=== PATIENT | female | born 1950 | race African-American/Black ===

== ENCOUNTER 2016-11-06 13:51 | Inpatient (IN) | payer OTHER, MEDICARE ==
[~2016-11-06] VITALS: Ht 162.6 cm; Wt 56.0 kg
[2016-11-06] VITALS (10 sets, daily range): BP systolic 101–117; BP diastolic 57–72; PULSE 107–113; RESP 18–20; TEMP 98–98.4; O2SAT 100
[~2016-11-06 13:51] MED LIST: 1-ME1LIQ PO; CALC-197 PO; HYDR-2768 PO; LEVO.025 PO; LIPI20TA OR; LORTA5 PO; ROBA750T3 PO; ROPI.5 PO; VITA100T15 PO; VITA500L4 PO
[2016-11-06] MEDS ORDERED: SODIUM CHLOR 0.9% 1000 ML INJ 1,000 ML IV SCH (14:10)
[2016-11-06] MEDS ORDERED: SODIUM CHLORIDE 0.9% FLUSH 5 ML FLUSH IVF PRN (14:15)
[2016-11-06] MEDS ORDERED: PANTOPRAZOLE SODIUM 40 MG VIAL IVP ONE (14:15)
--- NOTE | 2016-11-06 14:18 | PD ---
HPI Chief Complaint: Abdominal Pain Time Seen by Provider: 14:10 Travel History International Travel<30 days: No Contact w/Intl Traveler<30days: No Traveled to known affect area: No History of Present Illness HPI 66-year-old female with history of hypertension, high cholesterol, hypothyroidism, presents to the ER today brought in by EMS because she has had 2 days history of dark stools, lightheadedness, feeling like she is going to pass out and epigastric abdominal pains. Pain is currently a 5 out of 10. She denies any nausea, vomiting, fevers, shortness of breath, or other symptoms. Patient's called EMS because he states that she had syncopal episodes 3 times. She denies any loss of consciousness. Modifying Factors: None Associated Signs & Symptoms: Epigastric abdominal pains, lightheadedness, dark stool, near-syncope Risk Factors: None PFSH Past Medical History Diminished Hearing: No Hypertension: Yes Immunizations Current: No (NO MONEY FOR PCP) Menopausal: Yes Tubal Ligation: Yes Social History Alcohol Use: Yes (2 BEERS/DAY) Tobacco Use: No Substance Use: No Allergies-Medications (Allergen,Severity, Reaction): Coded Allergies: Lisinopril (Verified Allergy, Intermediate, Swelling, 11/06/16) Reported Meds & Prescriptions Reported Meds & Active Scripts Active [place] 5/325 (Hydrocodone/Acetaminophen 5/325) 5 mg/325 mg Tab 1 Tab PO BID PRN Requip (Ropinirole HCl) 0.5 Mg Tab 0.5 Mg PO HS Levothyroxine 25 mcg (Levothyroxine Sodium) 25 Mcg Tab 25 Mcg PO DAILY Robaxin-750 (Methocarbamol) 750 Mg Tab 750 Mg PO BID Lipitor 20 Mg Tab (Atorvastatin Calcium) 20 Mg Tab 20 Mg OR HS Hctz (Hydrochlorothiazide) 25 Mg Tab 25 Mg PO DAILY Amlodipine Besylate 10 mg (Amlodipine Besylate) 10 Mg Tab 10 Mg PO DAILY Reported Calcium 600+D3 (Calcium Carbonate-Cholecalcife) +D3 Tab 1 PO DAILY Vitamin B12 (Cyanocobalamin) 100 Mcg Tab 0 Mcg PO DAILY UNKNOWN DOSE Vitamin C (Ascorbic Acid) 500 Mg/5 Ml Syrp 500 Mg PO UNCERTAIN EXACT DOSE Review of Systems Except as stated in HPI: all other systems reviewed are Neg Physical Exam Narrative GENERAL: Well-developed elderly -Portuguese female in moderate distress, lethargic, but oriented 3. SKIN: Warm and dry. HEAD: Atraumatic. Normocephalic. EYES: Pupils equal and round. No scleral icterus. No injection or drainage. ENT: No nasal bleeding or discharge. Mucous membranes pink and moist. NECK: Trachea midline. No JVD. CARDIOVASCULAR: Regular rate and rhythm. No murmur appreciated. RESPIRATORY: No accessory muscle use. Clear to auscultation. Breath sounds equal bilaterally. GASTROINTESTINAL: Abdomen soft, mild epigastric tenderness without guarding or rebound, nondistended. Hepatic and splenic margins not palpable. RECTAL EXAM: No masses or tenderness, stool is dark brown, Hemoccult positive. MUSCULOSKELETAL: No obvious deformities. No clubbing. No cyanosis. No edema. NEUROLOGICAL: Awake and alert. No obvious cranial nerve deficits. Motor grossly within normal limits. Normal speech. PSYCHIATRIC: Appropriate mood and affect; insight and judgment normal. Data Data Last Documented VS Vital Signs Date Time Temp Pulse Resp B/P Pulse Ox O2 Delivery O2 Flow Rate FiO2 11/06/16 15:50 113 20 109/57 100 Room Air Orders Complete Blood Count With Diff (11/06/16 14:10) Comprehensive Metabolic Panel (11/06/16 14:10) Prothrombin Time / Inr (Pt) (11/06/16 14:10) Act Partial Throm Time (Ptt) (11/06/16 14:10) Urinalysis - C+S If Indicated (11/06/16 14:10) Type And Screen (11/06/16 14:10) Ecg Monitoring (11/06/16 14:10) Iv Access Insert/Monitor (11/06/16 14:10) Ng Gastric Tube Insert/Monitor (11/06/16 14:10) Oximetry (11/06/16 14:10) Pantoprazole Inj (Protonix Inj) (11/06/16 14:15) Sodium Chlor 0.9% 1000 Ml Inj (Ns 1000 M (11/06/16 14:10) Sodium Chloride 0.9% Flush (Ns Flush) (11/06/16 14:15) Electrocardiogram (11/06/16 14:18) Ckmb (Isoenzyme) Profile (11/06/16 14:18) Troponin I (11/06/16 14:18) Red Blood Cells (Rbc) (11/06/16 15:03) Blood Product Administration .UPON TRANSFUSION (11/06/16 15:03) Sodium Chlor 0.9% 250 Ml Inj (Ns 250 Ml (11/06/16 15:15) Admit Order (Ed Use Only) (11/06/16 15:55) Admit To Inpatient (11/06/16 ) Vital Signs (Adult) Q4H (11/06/16 15:59) Activity Oob Ad Pilar (11/06/16 15:59) Intake + Output YOKO.QSHIFT (11/06/16 15:59) Diet Npo (11/06/16 Dinner) Sodium Chloride 0.9% Flush (Ns Flush) (11/06/16 16:00) Sodium Chloride 0.9% Flush (Ns Flush) (11/06/16 21:00) Sodium Chlor 0.9% 1000 Ml Inj (Ns 1000 M (11/06/16 16:30) Pantoprazole Inj (Protonix Inj) (11/06/16 21:00) Ondansetron Inj (Zofran Inj) (11/06/16 16:00) Hgb & Hct (11/06/16 15:59) Hgb & Hct (11/07/16 03:59) Hgb & Hct (11/07/16 15:59) Complete Blood Count With Diff (11/07/16 06:00) Comprehensive Metabolic Panel (11/07/16 06:00) Resp Oxygen Rufus C Titrat 1-4 L (11/06/16 ) Consult Gastroenterology (11/06/16 ) Inpatient Certification (11/06/16 ) Labs Laboratory Tests Test 11/06/16 11/06/16 14:30 14:40 White Blood Count 12.9 TH/MM3 Red Blood Count 1.78 MIL/MM3 Hemoglobin 5.8 GM/DL Hematocrit 18.7 % Mean Corpuscular Volume 105.1 FL Mean Corpuscular Hemoglobin 32.7 PG Mean Corpuscular Hemoglobin 31.1 % Concent Red Cell Distribution Width 14.9 % Platelet Count 213 TH/MM3 Mean Platelet Volume 8.1 FL Neutrophils (%) (Auto) 85.1 % Lymphocytes (%) (Auto) 10.0 % Monocytes (%) (Auto) 4.7 % Eosinophils (%) (Auto) 0.0 % Basophils (%) (Auto) 0.2 % Neutrophils # (Auto) 11.0 TH/MM3 Lymphocytes # (Auto) 1.3 TH/MM3 Monocytes # (Auto) 0.6 TH/MM3 Eosinophils # (Auto) 0.0 TH/MM3 Basophils # (Auto) 0.0 TH/MM3 CBC Comment AUTO DIFF Differential Comment AUTO DIFF CONFIRMED Platelet Estimate NORMAL Platelet Morphology Comment NORMAL Ovalocytes 1+ Stomatocytes 1+ Prothrombin Time 10.9 SEC Prothromb Time International 1.0 RATIO Ratio Activated Partial 18.6 SEC Thromboplast Time Sodium Level 141 MEQ/L Potassium Level 3.9 MEQ/L Chloride Level 106 MEQ/L Carbon Dioxide Level 19.7 MEQ/L Anion Gap 15 MEQ/L Blood Urea Nitrogen 57 MG/DL Creatinine 1.02 MG/DL Estimat Glomerular Filtration 66 ML/MIN Rate Random Glucose 165 MG/DL Calcium Level 7.8 MG/DL Total Bilirubin 0.3 MG/DL Aspartate Amino Transf 55 U/L (AST/SGOT) Alanine Aminotransferase 26 U/L (ALT/SGPT) Alkaline Phosphatase 87 U/L Total Creatine Kinase 70 U/L Troponin I LESS THAN 0.02 NG/ML Total Protein 5.7 GM/DL Albumin 2.7 GM/DL Blood Type A POSITIVE Antibody Screen NEGATIVE Crossmatch Leukocyte-Reduced Red Blood Cells Blood Bank Comment Urine Color YELLOW Urine Turbidity CLEAR Urine pH 6.0 Urine Specific [place] 1.015 Urine Protein TRACE mg/dL Urine Glucose (UA) NEG mg/dL Urine Ketones NEG mg/dL Urine Occult Blood NEG Urine Nitrite NEG Urine Bilirubin NEG Urine Urobilinogen LESS THAN 2.0 MG/DL Urine Leukocyte Esterase NEG Urine WBC LESS THAN 1 /hpf Urine Hyaline Casts 5 /lpf Urine Mucus FEW /lpf Microscopic Urinalysis Comment CULT NOT INDICATED MDM Medical Decision Making Medical Screen Exam Complete: Yes Emergency Medical Condition: Yes Medical Record Reviewed: Yes Interpretation(s) EKG shows sinus tachycardia at a rate of 100 bpm with a left bundle branch block pattern. Unchanged from previous EKG from 2011. Laboratory Tests Test 11/06/16 11/06/16 14:30 14:40 White Blood Count 12.9 TH/MM3 (4.0-11.0) Red Blood Count 1.78 MIL/MM3 (4.00-5.30) Hemoglobin 5.8 GM/DL (11.6-15.3) Hematocrit 18.7 % (35.0-46.0) Mean Corpuscular Volume 105.1 FL (80.0-100.0) Mean Corpuscular Hemoglobin 31.1 % Concent (32.0-36.0) Neutrophils (%) (Auto) 85.1 % (16.0-70.0) Neutrophils # (Auto) 11.0 TH/MM3 (1.8-7.7) Activated Partial 18.6 SEC Thromboplast Time (24.3-30.1) Carbon Dioxide Level 19.7 MEQ/L (21.0-32.0) Blood Urea Nitrogen 57 MG/DL (7-18) Creatinine 1.02 MG/DL (0.50-1.00) Estimat Glomerular Filtration 66 ML/MIN (>89) Rate Random Glucose 165 MG/DL (74-106) Calcium Level 7.8 MG/DL (8.5-10.1) Aspartate Amino Transf 55 U/L (15-37) (AST/SGOT) Troponin I LESS THAN 0.02 NG/ML (0.02-0.05) Total Protein 5.7 GM/DL (6.4-8.2) Albumin 2.7 GM/DL (3.4-5.0) Urine Mucus FEW /lpf (OCC) Differential Diagnosis GI bleed versus coagulopathy versus dehydration versus metabolic issues Narrative Course Patient is Hemoccult positive. Patient was given IV fluids due to orthostasis. She gets quite dizzy and disoriented when stood up. Her H&H is low and 2 units of blood has been ordered for her. IV Protonix was ordered. At this point, my plan would be to admit the patient for further treatment. Patient's GI doctor, Dr. Olvera has been consult on the case. Case was discussed with Dr. Saunders for admission. HemaPrompt Point of Care Internal Pos. & Neg. Controls: Passed Fecal Specimen Occult Blood: Positive Diagnosis Primary Impression: GI bleed Additional Impression: Near syncope Admitting Information Admitting Physician Requests: Admit Jovani Pickering MD Nov 06, 2016 14:18
[2016-11-06 14:56] LABS: BLOOD, URINE NEG (NEG); COMMENT (UR) CULT NOT INDICATED; CULTURE IF INDICATED CULT NOT INDICATED; GLUCOSE,URINE NEG (NEG); HYALINE CAST, URINE 5 /lpf (RARE); KETONE, URINE NEG (NEG); MUCUS URINE FEW /lpf (OCC); NITRITE,URINE NEG (NEG); URINE COLOR YELLOW (YELLW/STRAW)
[2016-11-06 14:57] LABS: BASOPHIL % 0.2 % (0.0-2.0); LYMPHOCYTE # 1.3 TH/MM3 (1.0-4.8); MEAN CELL VOLUME 105.1 FL (80.0-100.0); MEAN CORPUSCULAR HEMOGLOBIN 32.7 PG (27.0-34.0); MEAN CORPUSCULAR HGB CONC 31.1 % (32.0-36.0); MONO % 4.7 % (0.0-8.0); NEUT % 85.1 % (16.0-70.0); PLATELET COUNT 213 TH/MM3 (150-450); RED BLOOD COUNT 1.78 MIL/MM3 (4.00-5.30); RED CELL DISTRIBUTION WIDTH 14.9 % (11.6-17.2); WHITE BLOOD COUNT 12.9 TH/MM3 (4.0-11.0)
[2016-11-06 15:05] LABS: HEMATOCRIT 18.7 % (35.0-46.0); HEMO FLAGS AUTO DIFF
[2016-11-06 15:09] LABS: PROTHROMBIN TIME - PATIENT 10.9 SEC (9.8-11.6)
[2016-11-06 15:10] LABS: APTT (PATIENT) 18.6 SEC (24.3-30.1)
[2016-11-06] MEDS ORDERED: SODIUM CHLOR 0.9% 250 ML INJ 250 ML IV ONE (15:15)
[2016-11-06 15:17] LABS: ALT (GPT) 26 U/L (10-53); ANION GAP 15 MEQ/L (5-15); AST (GOT) 55 U/L (15-37); BICARBONATE 19.7 MEQ/L (21.0-32.0); BLOOD UREA NITROGEN 57 MG/DL (7-18); CHLORIDE 106 MEQ/L (98-107); GLOMERULAR FILTRATION RATE 66 ML/MIN (>89); POTASSIUM 3.9 MEQ/L (3.5-5.1); SODIUM (NA) 141 MEQ/L (136-145)
[2016-11-06 15:19] LABS: ALKALINE PHOSPHATASE 87 U/L (45-117); TOTAL BILIRUBIN ADULT 0.3 MG/DL (0.2-1.0)
[2016-11-06 15:28] LABS: CREATINE KINASE 70 U/L (26-192)
[2016-11-06 15:54] LABS: OVALOCYTES 1+ (NORMAL); PLATELET ESTIMATE SMEAR NORMAL (NORMAL); PLATELET MORPHOLOGY NORMAL (NORMAL); SCAN/DIFF AUTO DIFF CONFIRMED; STOMATOCYTES 1+ (NORMAL)
[2016-11-06] MEDS ORDERED: ONDANSETRON HCL 4 MG/2 ML VIAL IV PRN (16:00)
[2016-11-06] MEDS ORDERED: SODIUM CHLORIDE 0.9% FLUSH 5 ML FLUSH FLUSH PRN (16:00)
--- NOTE | 2016-11-06 16:45 | HHI.HP ---
HPI Service [facility] Primary Care Physician Yamileth Aranda MD Admission Diagnosis near-syncope/severe anemia/GI bleed Diagnoses: Chief Complaint: dizziness, abd pain, nausea Travel History International Travel<30 Days: No Contact w/Intl Traveler <30 Da: No Traveled to Known Affected Are: No History of Present Illness 66-year-old female with PMH of HTN, hypothyroidism, GERD, gastritis follows with Dr. Wade ROTHMAN as outpatient. She came to the emergency room with complaints of lightheadedness and she fell twice today at home. Did not hit any bodily parts. She also has associated abdominal pain, nausea, palpitations , abdominal pain, shortness of breath getting worse for the past 2 days. Denies vomiting. She also noticed over the past 5 days black stool. Denies taking NSAIDs, does not drink alcohol. Had EGD/colonoscopy [address] Olvera. Family history + stomach cancer her mother at the age of 7 and brother with lymphoma. Review of Systems Except as stated in HPI: all other systems reviewed are Neg 12 system ROS reviewed and negative except as stated in the HPI Past Family Social History Past Medical History HTN, hypothyroidism, GERD, gastritis Allergies: Coded Allergies: Lisinopril (Verified Allergy, Intermediate, Swelling, 11/06/16) Family History Mother Stomach ca at the age of 72 Brother lymphoma Social History Denies EtOH use, tobacco use or illicit drug use. Physical Exam Vital Signs Vital Signs Date Time Temp Pulse Resp B/P Pulse Ox O2 Delivery O2 Flow Rate FiO2 11/06/16 15:50 113 20 109/57 100 Room Air 11/06/16 14:08 11/06/16 14:02 90 20 102/61 96 20 101/63 Physical Exam GENERAL: This is a pleasant 66 yo AA female, pale, in some distress, with NGT, well-nourished, well-developed patient. SKIN: No rashes, ecchymoses or lesions. Cool and dry. HEAD: Atraumatic. Normocephalic. No temporal or scalp tenderness. EYES: Pupils equal round and reactive. Extraocular motions intact. No scleral icterus. No injection or drainage. ENT: Nose without bleeding, purulent drainage or septal hematoma. Throat without erythema, tonsillar hypertrophy or exudate. Uvula midline. Airway patent. NECK: Trachea midline. No JVD or lymphadenopathy. Supple, nontender, no meningeal signs. CARDIOVASCULAR: Regular rate and rhythm without murmurs, gallops, or rubs. RESPIRATORY: Clear to auscultation. Breath sounds equal bilaterally. No wheezes , rales, or rhonchi. GASTROINTESTINAL: NGT in place. Abdomen soft, non-tender, nondistended. No hepato-splenomegaly, or palpable masses. No guarding. MUSCULOSKELETAL: Extremities without clubbing, cyanosis, or edema. No joint tenderness, effusion, or edema noted. No calf tenderness. Negative Homans sign bilaterally. NEUROLOGICAL: Awake and alert. Cranial nerves II through XII intact. Motor and sensory grossly within normal limits. Five out of 5 muscle strength in all muscle groups. Normal speech. Laboratory Laboratory Tests Test 11/06/16 11/06/16 14:30 14:40 White Blood Count 12.9 Red Blood Count 1.78 Hemoglobin 5.8 Hematocrit 18.7 Mean Corpuscular Volume 105.1 Mean Corpuscular Hemoglobin 32.7 Mean Corpuscular Hemoglobin 31.1 Concent Red Cell Distribution Width 14.9 Platelet Count 213 Mean Platelet Volume 8.1 Neutrophils (%) (Auto) 85.1 Lymphocytes (%) (Auto) 10.0 Monocytes (%) (Auto) 4.7 Eosinophils (%) (Auto) 0.0 Basophils (%) (Auto) 0.2 Neutrophils # (Auto) 11.0 Lymphocytes # (Auto) 1.3 Monocytes # (Auto) 0.6 Eosinophils # (Auto) 0.0 Basophils # (Auto) 0.0 CBC Comment AUTO DIFF Differential Comment AUTO DIFF CONFIRMED Platelet Estimate NORMAL Platelet Morphology Comment NORMAL Ovalocytes 1+ Stomatocytes 1+ Prothrombin Time 10.9 Prothromb Time International 1.0 Ratio Activated Partial 18.6 Thromboplast Time Sodium Level 141 Potassium Level 3.9 Chloride Level 106 Carbon Dioxide Level 19.7 Anion Gap 15 Blood Urea Nitrogen 57 Creatinine 1.02 Estimat Glomerular Filtration 66 Rate Random Glucose 165 Calcium Level 7.8 Total Bilirubin 0.3 Aspartate Amino Transf 55 (AST/SGOT) Alanine Aminotransferase 26 (ALT/SGPT) Alkaline Phosphatase 87 Total Creatine Kinase 70 Troponin I LESS THAN 0.02 Total Protein 5.7 Albumin 2.7 Blood Type A POSITIVE Antibody Screen NEGATIVE Crossmatch Leukocyte-Reduced Red Blood Cells Blood Bank Comment Urine Color YELLOW Urine Turbidity CLEAR Urine pH 6.0 Urine Specific [place] 1.015 Urine Protein TRACE Urine Glucose (UA) NEG Urine Ketones NEG Urine Occult Blood NEG Urine Nitrite NEG Urine Bilirubin NEG Urine Urobilinogen LESS THAN 2.0 Urine Leukocyte Esterase NEG Urine WBC LESS THAN 1 Urine Hyaline Casts 5 Urine Mucus FEW Microscopic Urinalysis Comment CULT NOT INDICATED Result Diagram: 11/06/16 1430 11/06/16 1430 Assessment and Plan Assessment and Plan 66 yo F with Anemia likely due to GI bleed. Melanotic stool. Abdominal pain/ nausea. Keep NPO. NGT on low intermittent suction. Start IVF . Monitor VS closely. H/o GERD/gastritis, had EGD/colonoscopy [address] Olvera Hemoglobin is 5.8 on admission Transfuse 3 units of blood Monitor H&H. Transfuse if hgb< 7 or if symptomatic anemia and hgb < 9 Start protonix 40 mg IV BID. Consider octreotide. Consult Dr. Olvera GI HTN: Hold BP meds. Monitor BP Hypothyroidism: Restart home meds. DVT ppx : SCD/TEDs, chemical ppx CI 2/2 GIB Discussed Condition With patient, nurse, ED physician, family at bedside Physician Certification 2 Midnight Certification Type: Admission for Inpatient Services Order for Inpatient Services The services are ordered in accordance with Medicare regulations or non- Medicare payer requirements, as applicable. In the case of services not specified as inpatient-only, they are appropriately provided as inpatient services in accordance with the 2-midnight benchmark. Estimated LOS (days): 3 days is the estimated time the patient will need to remain in the hospital, assuming treatment plan goals are met and no additional complications. Post-Hospital Plan: Not yet determined Adela Saunders MD Nov 06, 2016 16:45
[2016-11-06 17:01] LABS: HEMATOCRIT 18.3 % (35.0-46.0); REVIEW FLAG FINAL
[2016-11-06] MEDS ORDERED: HYDR-3583 PO (17:35)
[2016-11-06] MEDS ORDERED: LEVO25TA4 PO (17:35)
[2016-11-06] MEDS ORDERED: HYDR25TA5 PO (17:35)
[2016-11-06] MEDS ORDERED: AMLO10TA2 PO (17:35)
--- NOTE | 2016-11-06 20:27 | MB ---
cc: AUGUSTINA WHITAKER DATE OF CONSULTATION 11/06/16 1950 REASON FOR CONSULTATION Evaluation of anemia, GI bleed, syncope HISTORY OF PRESENT ILLNESS A 66-year-old female known to me from prior evaluation. She had EGD, colonoscopy in 2015. Upper endoscopy revealed reflux and gastritis. Colonoscopy revealed one colon polyp that was removed. The patient has not been seen since that time. She presents to the emergency room with lightheadedness and syncopal episodes. She was found to have a hemoglobin of 5.8. She has been having epigastric pain with nausea. She has been getting short of breath. This has been going on for about a week, worse over the last 2-3 days. She denies hematemesis. Also over the past several days she has noted black tarry stools. She admits to taking two Aleve in the evening. She has been doing this for about 3-4 weeks because she was unable to sleep and she felt this would help her sleep. She also admits to drinking at least three beers per day. She used to drink even heavier than that a year ago, 4+ beers per day. Her mother had gastric cancer. The patient also recently was found to have an abnormal imaging study, ultrasound of the liver and a CT scan has confirmed a 6 x 4 cm lesion in the liver in the left lobe. There were two smaller lesions. This raises a suspicion for a possible malignancy. She states that she has been losing weight over the last several weeks as well. Appetite has been poor. She states she has not had beer in the last couple of weeks. She is currently being transfused. I was asked to evaluate her further. PAST MEDICAL HISTORY 1. Hypertension, 2. Gastroesophageal reflux disease, 3. Gastritis, 4. Hypothyroidism. ALLERGIES LISINOPRIL FAMILY HISTORY As mentioned above. SOCIAL HISTORY She does consume alcohol. Mo other illicit drug use. REVIEW OF SYSTEMS 12-point review of systems was stated above. She has had no fever, chills or jaundice. MEDICATIONS 1. Amlodipine 2. Levothyroxine. 3. Hydrocodone for back pain. PHYSICAL EXAMINATION GENERAL: A thin, well-developed female alert in no acute distress. NG tube was placed. It was relatively clear. HEENT: She is nonicteric. Oral mucosa dry. NECK: Supple. CARDIAC: S1-S2 regular rhythm CHEST: Clear. ABDOMEN: Slight epigastric tenderness is noted. No masses. No hepatomegaly is noted. Bowel sounds are present. EXTREMITIES: Without clubbing, cyanosis or edema. LABORATORY DATA Other lab tests - liver enzymes were essentially stable. SGOT was 55. Bilirubin was normal. PT/INR normal. Platelet count was normal. MCV was noted high at 105 and white count was 12.9. IMPRESSION 1. Severe anemia. (the patient may have a component megaloblastic anemia as well) 2. Melena GI bleed. The patient does consume alcohol as mentioned above and she has been taking NSAIDs. Certainly an upper GI bleed such as duodenal ulcer, gastric ulcer may be responsible. I cannot rule out an occult lesion as well. 3. Epigastric pain secondary to above. 4. Recent diagnosis of hepatic mass. This is a concern for possible hepatoma due to chronic liver disease. The liver biopsy has been scheduled. PLAN We will proceed with EGD to rule out upper GI bleeding source in the morning. Procedure, risks and benefits have been discussed including bleeding, sepsis, perforation, etc. Would continue IV Protonix. The patient is currently is being transfused. Follow up the H&H post transfusion. Would be appropriate to transfuse to a hemoglobin of 8-9 range. I have ordered labs as well. We will follow the patient with you. Thank you kindly for this consult. I have discussed this with her as well. MD JAMIE Pitts/ /6:26 PM /8:05 PM
[2016-11-06] MEDS ORDERED: MORPHINE SULFATE 4 MG/ML INJ IV PUSH ONE (21:00)
[2016-11-06] MEDS: SODIUM CHLORIDE 0.9% FLUSH 5 ML FLUSH FLUSH SCH (21:00)
[2016-11-06] MEDS: PANTOPRAZOLE SODIUM 40 MG VIAL IV SCH (21:45)
[2016-11-07] VITALS (26 sets, daily range): BP systolic 107–132; BP diastolic 67–95; PULSE 82–112; RESP 16–20; TEMP 98.1–98.8; O2SAT 92–100
[2016-11-07] MEDS: SODIUM CHLOR 0.9% 1000 ML INJ 1,000 ML IV SCH ×3 (02:30→22:30)
[2016-11-07 05:45] LABS: AUTOMATED NEUTROPHIL # 9.2 TH/MM3 (1.8-7.7); BASOPHIL # 0.1 TH/MM3 (0-0.2); BASOPHIL % 0.5 % (0.0-2.0); EOSINOPHIL % 0.2 % (0.0-4.0); HEMO FLAGS DIFF FINAL; LYMPH % 15.1 % (9.0-44.0); LYMPHOCYTE # 1.9 TH/MM3 (1.0-4.8); MEAN CELL VOLUME 88.2 FL (80.0-100.0); MEAN CORPUSCULAR HEMOGLOBIN 29.6 PG (27.0-34.0); MEAN CORPUSCULAR HGB CONC 33.6 % (32.0-36.0); MONO % 9.3 % (0.0-8.0); NEUT % 74.9 % (16.0-70.0); PLATELET COUNT 187 TH/MM3 (150-450); RED BLOOD COUNT 3.07 MIL/MM3 (4.00-5.30); RED CELL DISTRIBUTION WIDTH 21.2 % (11.6-17.2); WHITE BLOOD COUNT 12.2 TH/MM3 (4.0-11.0)
[2016-11-07 06:17] LABS: ALKALINE PHOSPHATASE 89 U/L (45-117); ALT (GPT) 23 U/L (10-53); ANION GAP 10 MEQ/L (5-15); AST (GOT) 51 U/L (15-37); BICARBONATE 25.2 MEQ/L (21.0-32.0); BLOOD UREA NITROGEN 33 MG/DL (7-18); CHLORIDE 107 MEQ/L (98-107); GLOMERULAR FILTRATION RATE 92 ML/MIN (>89); POTASSIUM 3.7 MEQ/L (3.5-5.1); SODIUM (NA) 142 MEQ/L (136-145); TOTAL BILIRUBIN ADULT 1.1 MG/DL (0.2-1.0)
--- NOTE | 2016-11-07 07:24 | HHI.PR ---
Subjective Remarks Still with pain. No more nausea and no vomiting. NGT in place. No fever or chills. No cough. Did not have a BM. No over bleeding. Tachycardic, appears in distress due to pain and tachycardia. NPO plan for EGD today Objective Vitals Vital Signs Date Time Temp Pulse Resp B/P Pulse Ox O2 Delivery O2 Flow Rate FiO2 11/07/16 07:00 98.5 99 20 123/79 100 11/07/16 07:00 99 11/07/16 04:00 98.5 103 18 107/67 100 11/07/16 03:00 109 11/06/16 23:00 98.1 107 18 109/64 100 11/06/16 23:00 111 11/06/16 19:00 112 11/06/16 19:00 98.0 113 20 104/72 100 11/06/16 17:38 98.4 111 18 105/63 100 Room Air 11/06/16 17:35 100 21 11/06/16 17:12 98.4 109 19 117/63 100 Room Air 11/06/16 15:50 113 20 109/57 100 Room Air 11/06/16 14:08 11/06/16 14:02 90 20 102/61 96 20 101/63 I/O 11/06/16 11/06/16 11/06/16 11/07/16 11/07/16 11/07/16 07:00 15:00 23:00 07:00 15:00 23:00 Intake Total 250 ml Output Total 700 ml Balance -450 ml Intake Packed Cells 250 ml Output Urine Total 700 ml Result Diagram: 11/07/1650911/07/1610 Objective Remarks GENERAL: This is a pleasant 66 yo AA female, pale, in some distress, with NGT, well-nourished, well-developed patient. SKIN: No rashes, ecchymoses or lesions. Cool and dry. HEAD: Atraumatic. Normocephalic. No temporal or scalp tenderness. EYES: Pupils equal round and reactive. Extraocular motions intact. No scleral icterus. No injection or drainage. ENT: Nose without bleeding, purulent drainage or septal hematoma. Throat without erythema, tonsillar hypertrophy or exudate. Uvula midline. Airway patent. NECK: Trachea midline. No JVD or lymphadenopathy. Supple, nontender, no meningeal signs. CARDIOVASCULAR: Regular rate and rhythm without murmurs, gallops, or rubs. RESPIRATORY: Clear to auscultation. Breath sounds equal bilaterally. No wheezes , rales, or rhonchi. GASTROINTESTINAL: NGT in place. Abdomen soft, non-tender, nondistended. No hepato-splenomegaly, or palpable masses. No guarding. MUSCULOSKELETAL: Extremities without clubbing, cyanosis, or edema. No joint tenderness, effusion, or edema noted. No calf tenderness. Negative Homans sign bilaterally. NEUROLOGICAL: Awake and alert. Cranial nerves II through XII intact. Motor and sensory grossly within normal limits. Five out of 5 muscle strength in all muscle groups. Normal speech. A/P Assessment and Plan 66 yo F with Anemia likely due to GI bleed. Melanotic stool. Abdominal pain/ nausea. Keep NPO. NGT on low intermittent suction. On IVF . Monitor VS closely. H/o GERD/gastritis, had EGD/colonoscopy [address] Olvera Hemoglobin is 5.8 on admission S/P transfusion 2 units of blood repeat HGB 9.1 Monitor H&H. Transfuse if hgb< 7 or if symptomatic anemia and hgb < 9 Continue protonix 40 mg IV BID. Consider octreotide. Consult Dr. Olvera GI, plan for EGD 11/07/16. Pain meds per pain scale. HTN: Hold BP meds if low BP. Monitor BP Hypothyroidism: Restart home meds. DVT ppx : SCD/TEDs, chemical ppx CI 2/2 GIB Discussed Condition With patient, nurse Adela Saunders MD Nov 07, 2016 07:24
[2016-11-07] MEDS: SODIUM CHLORIDE 0.9% FLUSH 5 ML FLUSH FLUSH SCH ×2 (09:14→22:38)
[2016-11-07] MEDS: HYDROmorphone HCL PF 1 MG/ML VIAL IV PUSH PRN ×4 (09:14→23:25)
[2016-11-07] MEDS: PANTOPRAZOLE SODIUM 40 MG VIAL IV SCH ×2 (09:14→22:37)
[2016-11-07] MEDS ORDERED: PROPOFOL 200 MG/20 ML AMP IV ONE (11:13)
[2016-11-07] MEDS: SUCRALFATE 1 GM/10 ML CUP PO SCH ×3 (14:04→22:35)
[2016-11-07] MEDS ORDERED: SUCR1S PO (14:11)
[2016-11-07] MEDS ORDERED: PANT40TA3 PO (14:12)
--- NOTE | 2016-11-07 14:12 | HHI.DCPOC ---
Discharge Care Plan Goals to Promote Your Health * To prevent worsening of your condition and complications * To maintain your health at the optimal level Directions to Meet Your Goals Take your medications as prescribed Follow your dietary instruction Follow activity as directed Keep your appointments as scheduled Take your immunizations and boosters as scheduled If your symptoms worsen call your PCP, if no PCP go to Urgent Care Center or Emergency Room Smoking is Dangerous to Your Health. Avoid second hand smoke Call the 24-hour hour crisis hotline for domestic abuse at Adela Saunders MD Nov 07, 2016 14:12
[2016-11-07] MEDS ORDERED: FERR325T PO (14:14)
--- NOTE | 2016-11-07 15:22 | EKG ---
Date Performed: 11/06/2016 Time Performed: 14:30:21 PTAGE: 66 years EKG: SINUS TACHYCARDIA LEFT BUNDLE BRANCH BLOCK ABNORMAL ECG PREVIOUS TRACING : 12/28/2011 10.48 Compared to previous tracing, the patient is now tachycardi c. DOCTOR: Maki Tyson Interpretating Date/Time 11/07/2016 15:21:26
[2016-11-07 17:47] LABS: HEMATOCRIT 24.8 % (35.0-46.0); REVIEW FLAG FINAL
[2016-11-07] MEDS: ACETAMINOPHEN/HYDROcodone 325 MG/5 MG TAB PO PRN ×2 (18:03→22:36)
--- NOTE | 2016-11-07 19:09 | PQ ---
Physician Query Response Document PATIENT: STACY HOGUE : 1950 ADMIT DATE: 11/06/2016 3:56 PM DISCH DATE: RESPONDING PROVIDER #: [email or web address] QUERY TEXT: Anemia Type Anemia is documented in the Medical Record. Please specify the cause (includes suspected or probable cause) Such as: -- Due to ACUTE blood loss -- Due to CHRONIC blood loss -- Due to iron deficiency -- Due to chronic disease -- Other, please specify PLEASE CONTACT [facility] IN [facility] [id number] FOR ASSISTANCE- THANK YOU The patient's Clinical Indicators include: PER H Assessment and Plan Anemia likely due to GI bleed. Melanotic stool. Hemoglobin is 5.8 on admission Transfuse 3 units of blood Query created by: Emy Singh on 11/07/2016 10:03 AM RESPONSE TEXT: Anemia due to acute blood loss from GI patient has melena Electronically signed by: Adela Saunders MD 11/07/2016 7:06 PM
[2016-11-08] VITALS (27 sets, daily range): BP systolic 102–139; BP diastolic 60–81; PULSE 72–90; RESP 16–18; TEMP 98.1–98.9; O2SAT 98–100
[2016-11-08] MEDS: ACETAMINOPHEN/HYDROcodone 325 MG/5 MG TAB PO PRN ×3 (03:48→17:15)
[2016-11-08 06:28] LABS: AUTOMATED NEUTROPHIL # 4.9 TH/MM3 (1.8-7.7); BASOPHIL % 0.5 % (0.0-2.0); EOSINOPHIL # 0.1 TH/MM3 (0-0.4); EOSINOPHIL % 1.3 % (0.0-4.0); LYMPH % 25.4 % (9.0-44.0); MEAN CELL VOLUME 90.2 FL (80.0-100.0); MEAN CORPUSCULAR HEMOGLOBIN 30.4 PG (27.0-34.0); MEAN CORPUSCULAR HGB CONC 33.7 % (32.0-36.0); MONO % 12.6 % (0.0-8.0); NEUT % 60.2 % (16.0-70.0); PLATELET COUNT 198 TH/MM3 (150-450); RED BLOOD COUNT 2.55 MIL/MM3 (4.00-5.30); RED CELL DISTRIBUTION WIDTH 21.3 % (11.6-17.2); WHITE BLOOD COUNT 8.1 TH/MM3 (4.0-11.0)
[2016-11-08 06:45] LABS: HEMO FLAGS AUTO DIFF
[2016-11-08 06:55] LABS: BICARBONATE 26.8 MEQ/L (21.0-32.0); POTASSIUM 3.8 MEQ/L (3.5-5.1)
[2016-11-08 07:54] LABS: PLATELET ESTIMATE SMEAR NORMAL (NORMAL); PLATELET MORPHOLOGY NORMAL (NORMAL); SCAN/DIFF AUTO DIFF CONFIRMED
--- NOTE | 2016-11-08 08:25 | HHI.DS ---
Discharge Summary Admission Date Nov 06, 2016 at 15:56 Discharge Date: Nov 08, 2016 Admitting Diagnosis near-syncope/severe anemia/GI bleed (1) Gastric ulcer due to nonsteroidal anti-inflammatory drug (NSAID) ICD Code: T39.391A Diagnosis: Principal (2) gastric ulcers Diagnosis: Principal (3) GI bleed ICD Code: K92.2 Diagnosis: Principal (4) Chronic back pain ICD Code: G89.29 Diagnosis: Secondary (5) Near syncope ICD Code: R55 Diagnosis: Secondary Procedures EGD 11/07/[address] Olvera GI specialist Brief History - From Admission 66-year-old female with PMH of HTN, hypothyroidism, GERD, gastritis follows with Dr. Wade ROTHMAN as outpatient. She came to the emergency room with complaints of lightheadedness and she fell twice today at home. Did not hit any bodily parts. She also has associated abdominal pain, nausea, palpitations , abdominal pain, shortness of breath getting worse for the past 2 days. Denies vomiting. She also noticed over the past 5 days black stool. Denies taking NSAIDs, does not drink alcohol. Had EGD/colonoscopy [address] Olvera. Family history + stomach cancer her mother at the age of 7 and brother with lymphoma. CBC/BMP: 11/08/16 0550 11/08/16 0550 Significant Findings Laboratory Tests Test 11/06/16 11/06/16 11/06/16 11/07/16 14:30 14:40 16:29 05:10 White Blood Count 12.9 TH/MM3 12.2 TH/MM3 (4.0-11.0) (4.0-11.0) Red Blood Count 1.78 MIL/MM3 3.07 MIL/MM3 (4.00-5.30) (4.00-5.30) Hemoglobin 5.8 GM/DL 5.5 GM/DL 9.1 GM/DL (11.6-15.3) (11.6-15.3) (11.6-15.3) Hematocrit 18.7 % 18.3 % 27.0 % (35.0-46.0) (35.0-46.0) (35.0-46.0) Mean Corpuscular Volume 105.1 FL (80.0-100.0) Mean Corpuscular Hemoglobin 31.1 % Concent (32.0-36.0) Neutrophils (%) (Auto) 85.1 % 74.9 % (16.0-70.0) (16.0-70.0) Neutrophils # (Auto) 11.0 TH/MM3 9.2 TH/MM3 (1.8-7.7) (1.8-7.7) Ovalocytes 1+ (NORMAL) Stomatocytes 1+ (NORMAL) Activated Partial 18.6 SEC Thromboplast Time (24.3-30.1) Carbon Dioxide Level 19.7 MEQ/L (21.0-32.0) Blood Urea Nitrogen 57 MG/DL (7-18) 33 MG/DL (7-18) Creatinine 1.02 MG/DL (0.50-1.00) Estimat Glomerular Filtration 66 ML/MIN (>89) Rate Random Glucose 165 MG/DL (74-106) Calcium Level 7.8 MG/DL 8.0 MG/DL (8.5-10.1) (8.5-10.1) Aspartate Amino Transf 55 U/L (15-37) 51 U/L (15-37) (AST/SGOT) Troponin I LESS THAN 0.02 NG/ML (0.02-0.05) Total Protein 5.7 GM/DL 5.8 GM/DL (6.4-8.2) (6.4-8.2) Albumin 2.7 GM/DL 2.8 GM/DL (3.4-5.0) (3.4-5.0) Urine Mucus FEW /lpf (OCC) Red Cell Distribution Width 21.2 % (11.6-17.2) Monocytes (%) (Auto) 9.3 % (0.0-8.0) Monocytes # (Auto) 1.1 TH/MM3 (0-0.9) Total Bilirubin 1.1 MG/DL (0.2-1.0) Test 11/07/16 11/08/16 16:10 05:50 Hemoglobin 8.5 GM/DL 7.7 GM/DL (11.6-15.3) (11.6-15.3) Hematocrit 24.8 % 23.0 % (35.0-46.0) (35.0-46.0) Red Blood Count 2.55 MIL/MM3 (4.00-5.30) Red Cell Distribution Width 21.3 % (11.6-17.2) Monocytes (%) (Auto) 12.6 % (0.0-8.0) Monocytes # (Auto) 1.0 TH/MM3 (0-0.9) Calcium Level 8.4 MG/DL (8.5-10.1) PE at Discharge GENERAL: This is a pleasant 66 yo AA female, pale, in some distress, with NGT, well-nourished, well-developed patient. SKIN: No rashes, ecchymoses or lesions. Cool and dry. HEAD: Atraumatic. Normocephalic. No temporal or scalp tenderness. EYES: Pupils equal round and reactive. Extraocular motions intact. No scleral icterus. No injection or drainage. ENT: Nose without bleeding, purulent drainage or septal hematoma. Throat without erythema, tonsillar hypertrophy or exudate. Uvula midline. Airway patent. NECK: Trachea midline. No JVD or lymphadenopathy. Supple, nontender, no meningeal signs. CARDIOVASCULAR: Regular rate and rhythm without murmurs, gallops, or rubs. RESPIRATORY: Clear to auscultation. Breath sounds equal bilaterally. No wheezes , rales, or rhonchi. GASTROINTESTINAL: NGT in place. Abdomen soft, non-tender, nondistended. No hepato-splenomegaly, or palpable masses. No guarding. MUSCULOSKELETAL: Extremities without clubbing, cyanosis, or edema. No joint tenderness, effusion, or edema noted. No calf tenderness. Negative Homans sign bilaterally. NEUROLOGICAL: Awake and alert. Cranial nerves II through XII intact. Motor and sensory grossly within normal limits. Five out of 5 muscle strength in all muscle groups. Normal speech. Hospital Course 66 yo F with Anemia likely due to acute GI bleed form Gastric ulcers ( PUD). Patient with melanotic stool. Abdominal pain/ nausea. Keep NPO. NGT on low intermittent suction. On IVF . Monitor VS closely. H/o GERD/gastritis, had EGD/colonoscopy [address] Olvera Hemoglobin is 5.8 on admission S/P transfusion 2 units of blood repeat HGB 9.1. HGB trending down will give venofer IV today Monitor H&H. Transfuse if hgb< 7 or if symptomatic anemia and hgb < 9 Continue protonix 40 mg IV BID. Consult Dr. Wade ROTHMAN, s/p EGD 11/07/16 shows Gastric body ulcers, biopsies obtained . Continue protonix, add carafate. Pain meds per pain scale. HGB 7. 7 transfuse 1 U PRBC , repeat H/H HTN: Hold BP meds if low BP. Monitor BP Hypothyroidism: Restart home meds. DVT ppx : SCD/TEDs, chemical ppx CI 2/2 GIB Discussed Condition With patient, nurse Feels improved, and feels comfortable to go home. Will give venofer IV as patient says she did not take Iron pills lately because could not tolerate them lately. Transfuse 1 U PRBC before DC/ Repeat HGB stable. Patient improved, discharged home in stable condition to follow up as OP with Dr Wade ROTHMAN. Pt Condition on Discharge: Stable Discharge Disposition: Discharge Home Discharge Time: > 30 minutes Discharge Instructions DIET: Follow Instructions for: Heart Healthy Diet Activities you can perform: Regular-No Restrictions Follow up Referrals: Gastroenterology - 2 Weeks PCP Follow-up - 3-5 Days New Medications: Ferrous Sulfate (Ferrous Sulfate) 325 Mg Tab 325 MG PO DAILY Nutritional Supplement #30 Ref 0 TAB Pantoprazole (Pantoprazole) 40 Mg Tab 40 MG PO DAILY Reflux #30 Ref 0 TAB Sucralfate Liq (Sucralfate Liq) 1 Gm/10 Ml Carmela 1 GM PO QID gi protection #30 PKT Continued Medications: Amlodipine (Amlodipine) 10 Mg Tab 10 MG PO DAILY Blood Pressure Management #30 Ref 0 TAB Hydrochlorothiazide (Hydrochlorothiazide) 25 Mg Tab 25 MG PO DAILY #30 Ref 0 TAB Hydrocodone-Acetaminophen (Hydrocodone-Acetaminophen) 10-325 mg Tab 1 TAB PO Q6H PRN PAIN Ref 0 TAB Levothyroxine (Levothyroxine) 25 Mcg Tab 25 MCG PO DAILY Thyroid #30 Ref 0 TAB Adela Saunders MD Nov 08, 2016 08:25
[2016-11-08] MEDS: SUCRALFATE 1 GM/10 ML CUP PO SCH ×4 (08:28→20:24)
[2016-11-08] MEDS: PANTOPRAZOLE SODIUM 40 MG VIAL IV SCH ×2 (08:28→20:24)
[2016-11-08] MEDS: HYDROmorphone HCL PF 1 MG/ML VIAL IV PUSH PRN ×3 (08:29→20:25)
[2016-11-08] MEDS ORDERED: IRON SUCROSE 100 MG/5 ML VIAL IV PUSH ONE (08:30)
--- NOTE | 2016-11-08 08:33 | HHI.PR ---
Subjective Remarks H/H is trending down. Had a black BM last night. No n/v/d/c. No abdominal pain. no chest pain, lightheadedness, sob. Tolerates full liquid diet. Says she feels improved and feels comfortable to go home. Objective Vitals Vital Signs Date Time Temp Pulse Resp B/P Pulse Ox O2 Delivery O2 Flow Rate FiO2 11/08/16 07:30 98.1 81 18 120/72 100 11/08/16 06:01 72 11/08/16 05:00 73 11/08/16 04:18 98.6 81 16 125/72 100 11/08/16 04:00 81 11/08/16 03:00 80 11/08/16 02:00 80 11/08/16 01:00 88 11/08/16 00:17 98.8 81 16 139/81 100 11/08/16 00:00 88 11/07/16 23:00 89 11/07/16 22:00 98 11/07/16 21:00 82 11/07/16 20:44 98.8 95 16 129/78 100 11/07/16 20:00 92 11/07/16 19:17 96 21 11/07/16 19:00 96 11/07/16 18:00 99 11/07/16 17:00 100 11/07/16 16:00 88 11/07/16 15:00 98 11/07/16 15:00 98.1 94 20 121/71 99 11/07/16 14:00 100 11/07/16 13:00 105 11/07/16 12:30 84 11/07/16 12:30 98.8 87 20 132/95 100 11/07/16 11:40 89 16 124/81 100 11/07/16 11:35 91 16 122/83 100 11/07/16 11:30 97.6 92 16 125/82 100 11/07/16 10:32 92 21 11/07/16 10:10 98.5 99 20 123/79 100 11/07/16 09:00 96 I/O 11/07/16 11/07/16 11/07/16 11/08/16 11/08/16 11/08/16 07:00 15:00 23:00 07:00 15:00 23:00 Intake Total 250 ml 50 ml 480 ml 240 ml Output Total 700 ml Balance -450 ml 50 ml 480 ml 240 ml Intake Oral 480 ml 240 ml IV Total 50 ml Packed Cells 250 ml Output Urine Total 700 ml # Voids 3 2 Result Diagram: 11/08/16 0550 11/08/16 0550 Objective Remarks GENERAL: This is a pleasant 66 yo AA female, pale, in some distress, with NGT, well-nourished, well-developed patient. SKIN: No rashes, ecchymoses or lesions. Cool and dry. HEAD: Atraumatic. Normocephalic. No temporal or scalp tenderness. EYES: Pupils equal round and reactive. Extraocular motions intact. No scleral icterus. No injection or drainage. ENT: Nose without bleeding, purulent drainage or septal hematoma. Throat without erythema, tonsillar hypertrophy or exudate. Uvula midline. Airway patent. NECK: Trachea midline. No JVD or lymphadenopathy. Supple, nontender, no meningeal signs. CARDIOVASCULAR: Regular rate and rhythm without murmurs, gallops, or rubs. RESPIRATORY: Clear to auscultation. Breath sounds equal bilaterally. No wheezes , rales, or rhonchi. GASTROINTESTINAL: NGT in place. Abdomen soft, non-tender, nondistended. No hepato-splenomegaly, or palpable masses. No guarding. MUSCULOSKELETAL: Extremities without clubbing, cyanosis, or edema. No joint tenderness, effusion, or edema noted. No calf tenderness. Negative Homans sign bilaterally. NEUROLOGICAL: Awake and alert. Cranial nerves II through XII intact. Motor and sensory grossly within normal limits. Five out of 5 muscle strength in all muscle groups. Normal speech. A/P Assessment and Plan 66 yo F with Anemia likely due to acute GI bleed form Gastric ulcers ( PUD). Patient with melanotic stool. Abdominal pain/ nausea. Keep NPO. NGT on low intermittent suction. On IVF . Monitor VS closely. H/o GERD/gastritis, had EGD/colonoscopy [address] Olvera Hemoglobin is 5.8 on admission S/P transfusion 2 units of blood repeat HGB 9.1. HGB trending down will give venofer IV today Monitor H&H. Transfuse if hgb< 7 or if symptomatic anemia and hgb < 9 Continue protonix 40 mg IV BID. Consider octreotide. Consult Dr. Wade GI, s/p EGD 11/07/16 shows Gastric body ulcers. Continue protonix, add carafate. Pain meds per pain scale. HTN: Hold BP meds if low BP. Monitor BP Hypothyroidism: Restart home meds. DVT ppx : SCD/TEDs, chemical ppx CI 2/2 GIB Discussed Condition With patient, nurse Feels improved, and feels comfortable to go home. Will give venofer IV as patient says she did not take Iron pills lately because could not tolerate them lately. POss DC later today if cleared by GI Dr Wade Saunders,Adela WOLFF Nov 08, 2016 08:33
[2016-11-08] MEDS: SODIUM CHLORIDE 0.9% FLUSH 5 ML FLUSH FLUSH SCH ×2 (09:00→20:24)
--- NOTE | 2016-11-08 12:19 | HHI.GIFU ---
Subjective Remarks alert Nad dark stools today HB 7.7 feeling much better Objective Vitals I&O Vital Signs Date Time Temp Pulse Resp B/P Pulse Ox O2 Delivery O2 Flow Rate FiO2 11/08/16 10:10 18 11/08/16 10:00 86 11/08/16 09:00 84 11/08/16 08:00 84 11/08/16 07:30 98.1 81 18 120/72 100 11/08/16 07:00 78 11/08/16 06:01 72 11/08/16 05:00 73 11/08/16 04:18 98.6 81 16 125/72 100 11/08/16 04:00 81 11/08/16 03:00 80 11/08/16 02:00 80 11/08/16 01:00 88 11/08/16 00:17 98.8 81 16 139/81 100 11/08/16 00:00 88 11/07/16 23:00 89 11/07/16 22:00 98 11/07/16 21:00 82 11/07/16 20:44 98.8 95 16 129/78 100 11/07/16 20:00 92 11/07/16 19:17 96 21 11/07/16 19:00 96 11/07/16 18:00 99 11/07/16 17:00 100 11/07/16 16:00 88 11/07/16 15:00 98 11/07/16 15:00 98.1 94 20 121/71 99 11/07/16 14:00 100 11/07/16 13:00 105 11/07/16 12:30 84 11/07/16 12:30 98.8 87 20 132/95 100 I/O 11/07/16 11/07/16 11/07/16 11/08/16 11/08/16 11/08/16 07:00 15:00 23:00 07:00 15:00 23:00 Intake Total 250 ml 50 ml 480 ml 240 ml Output Total 700 ml Balance -450 ml 50 ml 480 ml 240 ml Intake Oral 480 ml 240 ml IV Total 50 ml Packed Cells 250 ml Output Urine Total 700 ml # Voids 3 2 Laboratory Laboratory Tests Test 11/07/16 11/08/16 16:10 05:50 Hemoglobin 8.5 7.7 Hematocrit 24.8 23.0 White Blood Count 8.1 Red Blood Count 2.55 Mean Corpuscular Volume 90.2 Mean Corpuscular Hemoglobin 30.4 Mean Corpuscular Hemoglobin 33.7 Concent Red Cell Distribution Width 21.3 Platelet Count 198 Mean Platelet Volume 7.3 Neutrophils (%) (Auto) 60.2 Lymphocytes (%) (Auto) 25.4 Monocytes (%) (Auto) 12.6 Eosinophils (%) (Auto) 1.3 Basophils (%) (Auto) 0.5 Neutrophils # (Auto) 4.9 Lymphocytes # (Auto) 2.0 Monocytes # (Auto) 1.0 Eosinophils # (Auto) 0.1 Basophils # (Auto) 0.0 CBC Comment AUTO DIFF Differential Comment AUTO DIFF CONFIRMED Platelet Estimate NORMAL Platelet Morphology Comment NORMAL Red Cell Morphology Comment Sodium Level 142 Potassium Level 3.8 Chloride Level 107 Carbon Dioxide Level 26.8 Anion Gap 8 Blood Urea Nitrogen 12 Creatinine 0.64 Estimat Glomerular Filtration 113 Rate Random Glucose 100 Calcium Level 8.4 Physical Exam HEENT: Pupils round and reactive to light; normocephalic; atraumatic; no jaundice. Throat is clear. CHEST: Chest is clear to auscultation and percussion. CARDIAC: Regular rate and rhythm with no murmur gallop or rubs. ABDOMEN: Soft, nondistended, nontender; no hepatosplenomegaly; bowel sounds are present in all four quadrants. EXTREMITIES: No clubbing, cyanosis, or edema. SKIN: Normal; no rash; no jaundice. Assessment and Plan Assessment: (1) GI bleed (2) Gastric ulcer due to nonsteroidal anti-inflammatory drug (NSAID) (3) gastric ulcers Plan continue carafate and ppi therapy advised pt to dc all nsaids and etoh ... transfuse 1 unit and dustin h/h if stable then ok to dc w outpt fu w Benjamin Fry MD Nov 08, 2016 12:19
[2016-11-08 13:32] LABS: HEMATOCRIT 25.7 % (35.0-46.0); REVIEW FLAG FINAL
[2016-11-08 18:47] LABS: HEMATOCRIT 32.3 % (35.0-46.0); REVIEW FLAG FINAL
[2016-11-08] MEDS ORDERED: CALCIUM CARBONATE 500 MG CHEWABLE TAB CHEW SCH (21:00)
--- NOTE | 2016-11-09 15:49 | MR ---
cc: AUGUSTINA WHITAKER DATE 11/07/2016 DATE OF 1950 PROCEDURE Upper endoscopy. INDICATION FOR THE PROCEDURE The patient presented with nausea, abdominal pain, epigastric pain and drop in hemoglobin, rule out the GI bleeding source. The patient has been known to consume alcohol and also has been taking NSAIDs. Photographs and biopsies were taken. Premedications administered by anesthesiology. Monitoring was accomplished with a pulse oximeter, EKG, blood pressure monitor. PROCEDURE DETAILS After informed consent was obtained and the procedure risks and benefits were explained including the risks of bleeding, sepsis, perforation and risk of anesthesia, the patient was placed in the left lateral position. The video endoscope was inserted per the oral route. Examination of the esophagus revealed this to be completely normal, EG junction was patent. Attention ____ the patient had multiple gastric ulcerations measuring between approximately 6 mm to 10 mm. These were scattered from the antrum to the proximal gastric body. These were not actively bleeding. There was some friability as the scope was maneuvered near these ulcerations. The pylorus was patent. The first, second, third portions of the duodenum were unremarkable. The scope was pulled back into the stomach and multiple biopsies were taken of the several of these ulcers. It was estimated the patient had about at least 10-12 ulcerations noted. Once again I did not appreciate any visible vessels with these ulcerations. The scope was then gradually withdrawn. The patient tolerated procedure well. No immediate complications were noted. IMPRESSION Multiple gastric ulcers. These were biopsied as best possible. The ulcerations could be due to a combination of alcohol ingestion and NSAIDs. These have probably contributed to the patient's drop in hemoglobin and anemia and GI bleeding. PLAN The patient had been transfused hemoglobin 9.2, would continue to monitor the H&Hs. I added Carafate therapy and would continue PPI twice a day. Follow up biopsies taken today. We will discuss with the patient's . MD JAMIE Pitts/VICKY /12:02 PM /3:37 PM
== END 2016-11-08 21:22 | disposition home or self-care (01) | DRG 378 ==
LOC: NEPC 13:51 → NEDA 15:56 → HCIS 19:03
PROVIDERS: ADMIT Hospitalist; ATTEND Hospitalist
PROC: 30233N1 Transfusion of Nonautologous Red Blood Cells into Peripheral Vein, Percutaneous Approach (ICD-10-PCS; 2016-11-06)
PROC: 0DB68ZX Excision of Stomach, Via Natural or Artificial Opening Endoscopic, Diagnostic (ICD-10-PCS; principal; 2016-11-07 11:03)
DX: K25.4 Chronic or unspecified gastric ulcer with hemorrhage (principal); D62 Acute posthemorrhagic anemia; I10 Essential (primary) hypertension; T39.395A Adverse effect of other nonsteroidal anti-inflammatory drugs [NSAID], initial encounter; K21.9 Gastro-esophageal reflux disease without esophagitis; E03.9 Hypothyroidism, unspecified; I44.7 Left bundle-branch block, unspecified; Z80.0 Family history of malignant neoplasm of digestive organs
CPT/HCPCS: 36430; 80048; 80053; 81001; 82550; 84484; 85014; 85018; 85025; 85610; 85730; 86850; 86900; 86901; 86920; 88305; 88312; 93005; 96374; C9113; J1170; J1756; J2270; J7030; P9016

== ENCOUNTER 2016-11-14 09:14 | Day surgery (SDC) | payer OTHER ==
[2016-11-14] VITALS (9 sets, daily range): BP systolic 100–146; BP diastolic 55–99; PULSE 100–111; RESP 18–20; TEMP 98.7–99; O2SAT 99–100
[~2016-11-14] VITALS: Ht 160 cm; Wt 55.0 kg
[~2016-11-14 09:14] MED LIST changes: -1-ME1LIQ PO; +AMLO10TA2 PO; -CALC-197 PO; +FERR325T PO; -HYDR-2768 PO; +HYDR-3583 PO; +HYDR25TA5 PO; -LEVO.025 PO; +LEVO25TA4 PO; -LIPI20TA OR; -LORTA5 PO; +PANT40TA3 PO; -ROBA750T3 PO; -ROPI.5 PO; +SUCR1S PO; -VITA100T15 PO; -VITA500L4 PO
[2016-11-14 10:32] LABS: AUTOMATED NEUTROPHIL # 8.6 TH/MM3 (1.8-7.7); BASOPHIL # 0.1 TH/MM3 (0-0.2); BASOPHIL % 0.8 % (0.0-2.0); EOSINOPHIL # 0.1 TH/MM3 (0-0.4); EOSINOPHIL % 0.5 % (0.0-4.0); HEMO FLAGS DIFF FINAL; LYMPH % 12.8 % (9.0-44.0); LYMPHOCYTE # 1.4 TH/MM3 (1.0-4.8); MEAN CELL VOLUME 92.3 FL (80.0-100.0); MEAN CORPUSCULAR HEMOGLOBIN 30.7 PG (27.0-34.0); MEAN CORPUSCULAR HGB CONC 33.3 % (32.0-36.0); MONO % 9.4 % (0.0-8.0); NEUT % 76.5 % (16.0-70.0); PLATELET COUNT 397 TH/MM3 (150-450); RED BLOOD COUNT 3.69 MIL/MM3 (4.00-5.30); RED CELL DISTRIBUTION WIDTH 20.1 % (11.6-17.2); WHITE BLOOD COUNT 11.3 TH/MM3 (4.0-11.0)
[2016-11-14] MEDS ORDERED: LIDOCAINE 1%/EPINEPHrine 1:100,000 SOLN 20 ML VIAL ONE (10:40)
[2016-11-14] MEDS ORDERED: MIDAZOLAM HCL 5 MG/5 ML VIAL ONE (11:06)
[2016-11-14] MEDS ORDERED: fentaNYL CITRATE 250 MCG/5 ML AMP ONE (11:06)
[2016-11-14] MEDS ORDERED: SODIUM CHLOR 0.9% 1000 ML INJ 1,000 ML IV SCH (11:30)
--- NOTE | 2016-11-14 12:12 | RADRPT ---
EXAM DATE/TIME: 11/14/2016 11:48 [facility] COMPARISON: [facility] (AP & LAT), December 23, 2012, 10:42. INDICATIONS : Post liver biopsy. MEDICAL HISTORY : None. SURGICAL HISTORY : None. ENCOUNTER: Initial ACUITY: 1 day PAIN SCORE: 0/10 LOCATION: Bilateral chest FINDINGS: A single view of the chest demonstrates the lungs to be symmetrically aerated without evidence of mas s, infiltrate or effusion. The cardiomediastinal contours are unremarkable. Osseous structures are intact. CONCLUSION: 1. No acute cardiopulmonary findings. Jelani Dee MD on November 14, 2016 at 12:10 Board Certified Radiologist. This report was verified electronically.
[2016-11-14] MEDS ORDERED: PILL SPLITTER OTHER PRN (12:30)
[2016-11-14] MEDS: HYDROmorphone HCL 2 MG TAB PO PRN ×2 (12:33→14:13)
--- NOTE | 2016-11-14 13:11 | RADRPT ---
EXAM DATE/TIME: 11/14/2016 11:17 [facility] COMPARISON: No previous studies available for comparison. INDICATIONS : Liver Biopsy SEDATION TIME: 15 minutes BIOPSY SITE: Right Liver MEDICATION(S): 1.) 3 mg midazolam (Versed) IV 2.) 150 mcg fentanyl (Sublimaze) IV DEVICE(S): 1.) 20 gauge Temno core biopsy needle MEDICAL HISTORY : None. SURGICAL HISTORY : None. ENCOUNTER: Initial ACUITY: 1 day PAIN SCORE: 2/10 LOCATION: Right liver A total of one core specimen(s) were obtained and sent to the laboratory for pathologic evaluation. PROCEDURE: 1. CT guided liver biopsy. 2. Conscious sedation with continuous EKG and oximetry monitoring. 3. EKG and oximetry remained stable throughout the procedure. Prior to the procedure informed consent was obtained. Any appropriate prior imaging studies were rev iewed. Using automated exposure control and adjustment of the mA and/or kV according to patient size, radiat ion dose was kept as low as reasonably achievable to obtain optimal diagnostic quality images. The site was prepped in a sterile fashion. Full sterile technique was used, including cap, mask, jacinto rile gloves and gown and a large sterile sheet. Hand hygiene and 2% chlorhexidine and/or betadine/al cohol prep was utilized per protocol for cutaneous antisepsis. The skin and subcutaneous tissues wer e infiltrated with local anesthetic solution. With CT guidance the previously identified target was localized. Biopsy was performed using the presc ribed needle as above. Adequate hemostasis was obtained with compression at the puncture site. Follow-up CT scan reveals no hemorrhage. The patient tolerated the procedure well and there were no complications. The patient was returned to the Radiology Outpatient Unit in stable condition. CONCLUSION: Uncomplicated CT guided biopsy. Brodie Contreras MD on November 14, 2016 at 13:08 Board Certified Radiologist. This report was verified electronically.
--- NOTE | 2016-11-14 13:45 | RADRPT ---
EXAM DATE/TIME: 11/14/2016 13:25 [facility] COMPARISON: No previous studies available for comparison. INDICATIONS : Status post liver biopsy. Evaluate for pneumothorax. MEDICAL HISTORY : Hypertension. SURGICAL HISTORY : Tubal ligation. ENCOUNTER: Subsequent ACUITY: 1 day PAIN SCORE: 0/10 LOCATION: chest FINDINGS: A single frontal expiratory view of the chest was performed. The lungs are symmetrically aerated and clear. No evidence of pneumothorax. Mediastinal structures are in the midline. The cardio-mediastinal contours and bronchopulmonary markings are unremarkable for an expiratory exam . Osseous structures are intact. CONCLUSION: No acute disease. No pneumothorax is noted. Brodie Contreras MD on November 14, 2016 at 13:43 Board Certified Radiologist. This report was verified electronically.
== END 2016-11-14 15:59 | disposition home or self-care (01) ==
LOC: HRAD 09:14 → HRIP 09:20 → HRAD 15:59
PROVIDERS: ATTEND Internal Medicine
DX: C22.0 Liver cell carcinoma (principal); I10 Essential (primary) hypertension
CPT/HCPCS: 47000; 71010; 77012; 85025; 88307; 88313; 88341; 88342; J2250; J3010; J7030

== ENCOUNTER 2017-09-07 02:28 | Emergency (ER) | payer OTHER, MEDICAID ==
[~2017-09-07] VITALS: Ht 162.6 cm; Wt 60.0 kg
[2017-09-07] MEDS ORDERED: IOHEXOL 350 MG/ML 10 ML VIAL (for RAD DIAG) IVCONTRAST ONE (02:29)
[2017-09-07 02:31] VITALS: BP 130/79; PULSE 100; RESP 16; O2SAT 97
[2017-09-07] MEDS ORDERED: FERR325T18 PO (02:43)
[2017-09-07] MEDS ORDERED: SODIUM CHLOR 0.9% 1000 ML INJ 1,000 ML IV ONE (02:52)
[2017-09-07] MEDS ORDERED: SODIUM CHLORIDE 0.9% FLUSH 10 ML FLUSH IVF PRN (03:00)
--- NOTE | 2017-09-07 03:14 | PD ---
HPI Chief Complaint: Syncope/Near-Syncope Time Seen by Provider: 02:52 Travel History International Travel<30 days: No Contact w/Intl Traveler<30days: No Traveled to known affect area: No History of Present Illness HPI 67-year-old female presents to the emergency department from home by EMS transport for possible fainting episode. Patient has very poor historian and changes her story frequently. states that he heard her fall and went to the other room and found her on the floor but she was awake. There was no witnessed loss of consciousness and no witnessed seizure activity. Reportedly because patient was having a difficult time getting off the floor she initially did not want to come to the hospital but then finally her convinced her to come to the emergency room. Patient is currently being treated for hepatocellular cancer. Patient is on the care of Dr. Rivera and his specialist for radiation therapy at [facility]. Patient's had no recent chest pain pleuritic chest pain shortness of breath or hemoptysis. Patient's had no lower extremity pain or swelling. Patient complains of chronic pain that is not adequate control by hydrocodone. Patient is requesting pain medicine. Patient does not think she hit her head but is not certain. Patient denies head pain neck pain act pain chest pain or extremity numbness tingling or weakness or pain. She has chronic abdominal pain primarily to the right upper quadrant. Patient's had no recent fever or chills. [facility] Past Medical History Narrative Medical Hepatocellular cancer hypertension hypothyroidism tubal ligation no tobacco use no alcohol use Cancer: Yes (LIVER) Cardiovascular Problems: No Diabetes: No Diminished Hearing: No Endocrine: No Gastrointestinal Disorders: Yes (bleeding ulcer) Genitourinary: No Hepatitis: No Hiatal Hernia: No Hypertension: Yes Immune Disorder: No Musculoskeletal: No Neurologic: No Psychiatric: No Reproductive: No Respiratory: No Immunizations Current: No (NO MONEY FOR PCP) Radiation Therapy: Yes Sickle Cell Disease: No Thyroid Disease: Yes (hypothyroidism) Influenza Vaccination: No Menopausal: Yes Tubal Ligation: Yes Past Surgical History Abdominal Surgery: No AICD: No Cardiac Surgery: No Ear Surgery: No Endocrine Surgery: No Eye Surgery: No Genitourinary Surgery: No Gynecologic Surgery: Yes (tubal ligation) Joint Replacement: No Oral Surgery: No Pacemaker: No Thoracic Surgery: No Social History Alcohol Use: Yes (WINE) Tobacco Use: No Substance Use: No Allergies-Medications (Allergen,Severity, Reaction): Coded Allergies: lisinopril (Unverified Allergy, Intermediate, Swelling, 09/07/17) Reported Meds & Prescriptions Reported Meds & Active Scripts Active Pantoprazole (Pantoprazole Sodium) 40 Mg Tab 40 Mg PO DAILY Sucralfate Liq (Sucralfate) 1 Gm/10 Ml Carmela 1 Gm PO QID Reported Ferrous Sulfate 325 Mg (65 Mg Iron) Tablet 325 Mg PO DAILY Amlodipine (Amlodipine Besylate) 10 Mg Tab 10 Mg PO DAILY Hydrocodone-Acetaminophen 10-325 mg Tab 1 Tab PO Q6H PRN Levothyroxine (Levothyroxine Sodium) 25 Mcg Tab 25 Mcg PO DAILY Hydrochlorothiazide 25 Mg Tab 25 Mg PO DAILY Review of Systems Except as stated in HPI: all other systems reviewed are Neg General / Constitutional: No: Fever, Chills Eyes: No: Visual changes HENT: No: Headaches, Lightheadedness, Neck Stiffness, Neck Pain Cardiovascular: No: Chest Pain or Discomfort, Palpitations, Diaphoresis Respiratory: No: Shortness of Breath, Pleuritic Pain Gastrointestinal: No: Nausea, Vomiting, Abdominal Pain Genitourinary: No: Dysuria, Flank Pain Musculoskeletal: No: Myalgias, Arthralgias Skin: No Rash Neurologic: No: Weakness Psychiatric: No: Anxiety Hematologic/Lymphatic: No: Lymph Node Enlargement Physical Exam Narrative GENERAL: Well-developed well-nourished female in no acute distress no respiratory distress GCS 15 SKIN: Warm and dry. HEAD: Atraumatic. Normocephalic. EYES: Pupils equal and round. No scleral icterus. No injection or drainage. ENT: No nasal bleeding or discharge. Mucous membranes pink and moist. NECK: Trachea midline. No JVD. Supple no meningismus no nuchal rigidity no midline tenderness to direct palpation along the cervical spine no bony step-off CARDIOVASCULAR: Regular rate and rhythm. RESPIRATORY: No accessory muscle use. Clear to auscultation. Breath sounds equal bilaterally. GASTROINTESTINAL: Abdomen soft, mild RUQ tenderness to palpation, nondistended. Hepatic and splenic margins not palpable. MUSCULOSKELETAL: Extremities without clubbing, cyanosis, or edema. No obvious deformities. NEUROLOGICAL: Awake and alert. No obvious cranial nerve deficits. Motor grossly within normal limits. Five out of 5 muscle strength in the arms and legs. Normal speech. PSYCHIATRIC: Appropriate mood and affect; insight and judgment normal. Data Data Last Documented VS Vital Signs Date Time Temp Pulse Resp B/P (MAP) Pulse Ox O2 Delivery O2 Flow Rate FiO2 09/07/17 04:00 92 16 105/64 (78) 97 Room Air Orders Orders Electrocardiogram (09/07/17 02:52) Complete Blood Count With Diff (09/07/17 02:52) Comprehensive Metabolic Panel (09/07/17 02:52) Magnesium (Mg) (09/07/17 02:52) Ckmb (Isoenzyme) Profile (09/07/17 02:52) Troponin I (09/07/17 02:52) Act Partial Throm Time (Ptt) (09/07/17 02:52) Prothrombin Time / Inr (Pt) (09/07/17 02:52) Urinalysis - C+S If Indicated (09/07/17 02:52) Chest, Single Ap (09/07/17 02:52) Ct Brain W/O Iv Contrast(Rout) (09/07/17 02:52) Ecg Monitoring (09/07/17 02:52) Iv Access Insert/Monitor (09/07/17 02:52) Oximetry (09/07/17 02:52) Sodium Chloride 0.9% Flush (Ns Flush) (09/07/17 03:00) Sodium Chlor 0.9% 1000 Ml Inj (Ns 1000 M (09/07/17 02:52) Ondansetron Inj (Zofran Inj) (09/07/17 03:45) Morphine Inj (Morphine Inj) (09/07/17 03:45) Potassium Chloride (Kcl) (09/07/17 05:30) Ct Pulmonary Angiogram (09/07/17 ) Iohexol 350 Inj (Omnipaque 350 Inj) (09/07/17 02:29) Sodium Chlorid 0.9% 500 Ml Inj (Ns 500 M (09/07/17 07:00) Ed Discharge Order (09/07/17 07:08) Labs Laboratory Tests Test 09/07/17 03:00 09/07/17 06:40 White Blood Count 3.3 TH/MM3 Red Blood Count 3.91 MIL/MM3 Hemoglobin 12.9 GM/DL Hematocrit 39.2 % Mean Corpuscular Volume 100.4 FL Mean Corpuscular Hemoglobin 32.9 PG Mean Corpuscular Hemoglobin Concent 32.8 % Red Cell Distribution Width 13.6 % Platelet Count 119 TH/MM3 Mean Platelet Volume 7.6 FL Neutrophils (%) (Auto) 53.4 % Lymphocytes (%) (Auto) 21.5 % Monocytes (%) (Auto) 23.8 % Eosinophils (%) (Auto) 0.7 % Basophils (%) (Auto) 0.6 % Neutrophils # (Auto) 1.8 TH/MM3 Lymphocytes # (Auto) 0.7 TH/MM3 Monocytes # (Auto) 0.8 TH/MM3 Eosinophils # (Auto) 0.0 TH/MM3 Basophils # (Auto) 0.0 TH/MM3 CBC Comment DIFF FINAL Differential Comment Prothrombin Time 10.8 SEC Prothromb Time International Ratio 1.1 RATIO Activated Partial Thromboplast Time 28.8 SEC Blood Urea Nitrogen 8 MG/DL Creatinine 0.61 MG/DL Random Glucose 89 MG/DL Total Protein 7.6 GM/DL Albumin 3.3 GM/DL Calcium Level 8.6 MG/DL Magnesium Level 2.2 MG/DL Alkaline Phosphatase 509 U/L Aspartate Amino Transf (AST/SGOT) 196 U/L Alanine Aminotransferase (ALT/SGPT) 49 U/L Total Bilirubin 0.6 MG/DL Sodium Level 143 MEQ/L Potassium Level 3.2 MEQ/L Chloride Level 104 MEQ/L Carbon Dioxide Level 27.3 MEQ/L Anion Gap 12 MEQ/L Estimat Glomerular Filtration Rate 119 ML/MIN Total Creatine Kinase 97 U/L Troponin I LESS THAN 0.02 NG/ML Urine Color YELLOW Urine Turbidity CLEAR Urine pH 6.0 Urine Specific [place] 1.008 Urine Protein NEG mg/dL Urine Glucose (UA) NEG mg/dL Urine Ketones NEG mg/dL Urine Occult Blood NEG Urine Nitrite NEG Urine Bilirubin NEG Urine Urobilinogen LESS THAN 2.0 MG/DL Urine Leukocyte Esterase NEG Urine RBC LESS THAN 1 /hpf Urine WBC LESS THAN 1 /hpf Urine Squamous Epithelial Cells 4 /hpf Microscopic Urinalysis Comment CULT NOT INDICATED MDM Medical Decision Making Medical Screen Exam Complete: Yes Emergency Medical Condition: Yes Medical Record Reviewed: Yes Interpretation(s) EKG: Normal sinus rhythm rate 99 left bundle branch block noted since 11/06/16 UA: wnl Last Impressions Head CT 09/07/17 0252 Signed Impressions: Service Date/Time: Thursday, September 07, 2017 03:57 - CONCLUSION: No acute disease. Oleg Mcgrath MD Chest X-Ray 09/07/17 0252 Signed Impressions: Service Date/Time: Thursday, September 07, 2017 02:59 - CONCLUSION: No acute disease. Oleg Mcgrath MD CT Angiography 09/07/17 0000 Signed Impressions: Service Date/Time: Thursday, September 07, 2017 06:29 - CONCLUSION: 1. No pulmonary embolus. 2. Calcified granuloma right lung base. 3. Hepatic steatosis. Oleg Mcgrath MD CBC & BMP Diagram 09/07/17 03:00 Total Protein 7.6, Albumin 3.3 L, Calcium Level 8.6, Magnesium Level 2.2, Alkaline Phosphatase 509 H, Aspartate Amino Transf (AST/SGOT) 196 H, Alanine Aminotransferase (ALT/SGPT) 49, Total Bilirubin 0.6 Vital Signs Date Time Temp Pulse Resp B/P (MAP) Pulse Ox O2 Delivery O2 Flow Rate FiO2 09/07/17 04:00 92 16 105/64 (78) 97 Room Air 09/07/17 03:30 87 16 133/71 (91) 93 09/07/17 02:31 100 16 130/79 (96) 97 troponin I: less than 0.02, not elevated; CK total 97, not elevated Differential Diagnosis Near-syncope, syncope, arrhythmia, PE, anemia, seizure, electronic disturbance Narrative Course Patient placed on monitoring manager with continuous pulse oximetry IV access obtained specimens collected and sent for resulting EKG performed which shows sinus rhythm with left bundle branch block which is a pre-existing fine no acute ST elevation or injury pattern Specimens are collected and sent for resulting patient was sent for CT brain noncontrast CT brain noncontrast reveals no acute abnormality and chest x-ray reveals no acute abnormality CBC with automated differential remarkable for mild leukopenia mild no anemia and only mild thrombocytopenia Chemistries remarkable for hypokalemia potassium of 3.2 elevation of LFTs alkaline phosphatase 509 and AST 196 patient has known hepatocellular cancer is undergoing management by Dr. Rivera and radiation therapy at [facility] CK total 97 and troponin I less than 0.02 these or not elevated values Patient was sent for CT pulmonary angiogram in view of possible episode of near- syncope versus syncope versus generalized weakness with fall to evaluate for PE ; this imaging study was negative for PE Patient stable for outpatient management and close follow-up with her primary care provider and oncologist. UA wnl. Diagnosis Primary Impression: Spell of generalized weakness Additional Impressions: Fall Hypokalemia Hepatocellular carcinoma Referrals: Ap Rivera MD, Sohit K. MD Primary Care Physician 1 day Patient Instructions: General Instructions Additional Instructions: Increase fluid hydration Follow-up with your primary care provider and oncologist Return to the emergency for free concerns or change in condition Monitor temperature for fever take as needed acetaminophen as tolerated Return to the emergency department for any concerns or change in condition Disposition: 01 DISCHARGE HOME (Which:) Condition: Stable (away) Shandra Betancur MD Sep 07, 2017 03:14
[2017-09-07 03:15] LABS: AUTOMATED NEUTROPHIL # 1.8 TH/MM3 (1.8-7.7); BASOPHIL % 0.6 % (0.0-2.0); EOSINOPHIL % 0.7 % (0.0-4.0); HEMATOCRIT 39.2 % (35.0-46.0); HEMOGLOBIN 12.9 GM/DL (11.6-15.3); LYMPH % 21.5 % (9.0-44.0); LYMPHOCYTE # 0.7 TH/MM3 (1.0-4.8); MEAN CELL VOLUME 100.4 FL (80.0-100.0); MEAN CORPUSCULAR HEMOGLOBIN 32.9 PG (27.0-34.0); MEAN CORPUSCULAR HGB CONC 32.8 % (32.0-36.0); MEAN PLATELET VOLUME 7.6 FL (7.0-11.0); MONO % 23.8 % (0.0-8.0); MONOCYTE # 0.8 TH/MM3 (0-0.9); NEUT % 53.4 % (16.0-70.0); PLATELET COUNT 119 TH/MM3 (150-450); RED BLOOD COUNT 3.91 MIL/MM3 (4.00-5.30); RED CELL DISTRIBUTION WIDTH 13.6 % (11.6-17.2); WHITE BLOOD COUNT 3.3 TH/MM3 (4.0-11.0)
[2017-09-07 03:20] LABS: INTERNATIONAL NORMALIZED RATIO 1.1 RATIO; PROTHROMBIN TIME - PATIENT 10.8 SEC (9.8-11.6)
[2017-09-07 03:29] LABS: ALBUMIN 3.3 GM/DL (3.4-5.0); ALT (GPT) 49 U/L (10-53); AST (GOT) 196 U/L (15-37); BICARBONATE 27.3 MEQ/L (21.0-32.0); BLOOD UREA NITROGEN 8 MG/DL (7-18); CALCIUM 8.6 MG/DL (8.5-10.1); CHLORIDE 104 MEQ/L (98-107); CREATININE 0.61 MG/DL (0.50-1.00); GLOMERULAR FILTRATION RATE 119 ML/MIN (>89); GLUCOSE,RANDOM 89 MG/DL (74-106); MAGNESIUM 2.2 MG/DL (1.5-2.5); SODIUM (NA) 143 MEQ/L (136-145)
[2017-09-07 03:30] VITALS: BP 133/71; PULSE 87; RESP 16; O2SAT 93
[2017-09-07 03:33] LABS: ALKALINE PHOSPHATASE 509 U/L (45-117); TOTAL BILIRUBIN ADULT 0.6 MG/DL (0.2-1.0); TOTAL PROTEIN 7.6 GM/DL (6.4-8.2); TROPONIN I LESS THAN 0.02 NG/ML (0.02-0.05)
--- NOTE | 2017-09-07 03:39 | RADRPT ---
EXAM DATE/TIME: 09/07/2017 02:59 [facility] COMPARISON: CHEST SINGLE AP, November 14, 2016, 11:48. INDICATIONS : Syncopal episode MEDICAL HISTORY : Hypertension. Liver cancer SURGICAL HISTORY : Tubal ligation. ENCOUNTER: Initial ACUITY: 1 day PAIN SCORE: 6/10 LOCATION: Bilateral chest FINDINGS: A single view of the chest demonstrates the lungs to be symmetrically aerated without evidence of mas s, infiltrate or effusion. The cardiomediastinal contours are unremarkable. Osseous structures are intact. CONCLUSION: No acute disease. Oleg Mcgrath MD on September 07, 2017 at 3:36 Board Certified Radiologist. This report was verified electronically.
[2017-09-07] MEDS ORDERED: MORPHINE SULFATE 2 MG/ML INJ IV PUSH ONE (03:45)
[2017-09-07] MEDS ORDERED: ONDANSETRON HCL 4 MG/2 ML VIAL IV PUSH ONE (03:45)
[2017-09-07 04:00] VITALS: BP 105/64; PULSE 92; RESP 16; O2SAT 97
--- NOTE | 2017-09-07 04:29 | RADRPT ---
EXAM DATE/TIME: 09/07/2017 03:57 [facility] COMPARISON: No previous studies available for comparison. INDICATIONS : Syncopal episode. RADIATION DOSE: 56.35 CTDIvol (mGy) MEDICAL HISTORY : Carcinoma, not otherwise specified. Hypertension. Cardiovascular disease SURGICAL HISTORY : None. ENCOUNTER: Initial ACUITY: 1 day PAIN SCALE: 0/10 LOCATION: cranial TECHNIQUE: Multiple contiguous axial images were obtained of the head. Using automated exposure control and adj ustment of the mA and/or kV according to patient size, radiation dose was kept as low as reasonably a chievable to obtain optimal diagnostic quality images. DICOM format image data is available electro nically for review and comparison. FINDINGS: CEREBRUM: The ventricles are normal for age. No evidence of midline shift, mass lesion, hemorrhage or acute in farction. No extra-axial fluid collections are seen. Calcifications are seen in the basal ganglia. POSTERIOR FOSSA: The cerebellum and brainstem are intact. The 4th ventricle is midline. The cerebellopontine angle i s unremarkable. EXTRACRANIAL: The visualized portion of the orbits is intact. SKULL: The calvaria is intact. No evidence of skull fracture. CONCLUSION: No acute disease. Oleg Mcgrath MD on September 07, 2017 at 4:25 Board Certified Radiologist. This report was verified electronically.
[2017-09-07] MEDS ORDERED: POTASSIUM CHLORIDE 20 MEQ CONTROLLED RELEASE TAB PO ONE (05:30)
--- NOTE | 2017-09-07 06:44 | RADRPT ---
EXAM DATE/TIME: 09/07/2017 06:29 [facility] COMPARISON: No previous studies available for comparison. INDICATIONS : Syncope. Evaluate for emboli. IV CONTRAST: 67 cc Omnipaque 350 (iohexol) IV RADIATION DOSE: 20.22 CTDIvol (mGy) MEDICAL HISTORY : Carcinoma, hepatocellular. Hypertension. Cerebrovascular disease. SURGICAL HISTORY : None. ENCOUNTER: Initial ACUITY: 1 day PAIN SCALE: 0/10 LOCATION: chest TECHNIQUE: Volumetric scanning of the chest was performed using a pulmonary embolism protocol MIP images were re constructed. Using automated exposure control and adjustment of the mA and/or kV according to patien t size, radiation dose was kept as low as reasonably achievable to obtain optimal diagnostic quality images. DICOM format image data is available electronically for review and comparison. Follow-up recommendations for detected pulmonary nodules are based at a minimum on nodule size and pa tient risk factors according to Fleischner Society Guidelines. FINDINGS: PULMONARY ARTERIES: No filling defects are seen in the pulmonary arteries through the segmental level. LUNGS: There is a calcified granuloma at the posterior right lower lobe. PLEURAE: There is no pleural thickening or pleural effusion. MEDIASTINUM: There is good visualization of the great vessels of the middle mediastinum. No evidence of mediastin al or hilar adenopathy/mass. MUSCULOSKELETAL: Within normal limits for patient age. MISCELLANEOUS: The visualized upper abdominal organs demonstrate no acute abnormality. There is hepatic steatosis. CONCLUSION: 1. No pulmonary embolus. 2. Calcified granuloma right lung base. 3. Hepatic steatosis. Oleg Mcgrath MD on September 07, 2017 at 6:40 Board Certified Radiologist. This report was verified electronically.
[2017-09-07 06:56] LABS: BILIRUBIN, URINE NEG (NEG); BLOOD, URINE NEG (NEG); GLUCOSE,URINE NEG (NEG); KETONE, URINE NEG (NEG); NITRITE,URINE NEG (NEG); SQUAMOUS EPITHELIAL CELL URINE 4 /hpf (0-5); URINE COLOR YELLOW (YELLW/STRAW); URINE LEUKOCYTE ESTERASE NEG (NEG)
[2017-09-07] MEDS ORDERED: SODIUM CHLORID 0.9% 500 ML INJ 500 ML IV ONE (07:00)
--- NOTE | 2017-09-07 15:54 | EKG ---
Date Performed: 09/07/2017 Time Performed: 02:33:58 PTAGE: 67 years EKG: Sinus rhythm LEFT BUNDLE BRANCH BLOCK Since previous tracing, no significant change noted ABNORMAL ECG PREVIOUS TRACING : 11/06/2016 14.30.21 DOCTOR: Preet Sanchez Interpretating Date/Time 09/07/2017 15:53:58
== END 2017-09-07 07:56 | disposition home or self-care (01) ==
LOC: NEPC 02:28
DX: R53.1 Weakness (principal); E87.6 Hypokalemia; C22.0 Liver cell carcinoma; G89.29 Other chronic pain; I10 Essential (primary) hypertension
CPT/HCPCS: 70450; 71045; 71275; 80053; 81001; 82550; 83735; 84484; 85025; 85610; 85730; 93005; 96361; 96374; 96375; 99285; J2270; J2405; J7030; J7040; Q9967

== ENCOUNTER 2018-07-08 11:10 | Inpatient (IN) ==
[2018-07-08] MEDS ORDERED: Piperacil/Tazo 4.5 GM Premix 4.5 GM/100 ML BAG IV.SIG STA (11:31)
[2018-07-08] MEDS ORDERED: SODIUM CHLOR 0.9% IV.SIG STA (11:31)
[2018-07-08] MEDS ORDERED: VANCOMYCIN IV.SIG STA (11:31)
[2018-07-08] MEDS ORDERED: Etomidate Inj 40 MG/20 ML Vial IV.PUSH ONE ×2 (11:38→11:54)
[2018-07-08] MEDS ORDERED: Succinylcholine Inj 200 MG/10 ML Vial ONE (11:38)
[2018-07-08] MEDS ORDERED: Sod Chloride 0.9% Inj 1,000 ML IV.SIG SCH ×2 (11:45→13:00)
[2018-07-08] MEDS ORDERED: fentaNYL 10 mcg/mL Premix Drip 2,500 MCG/250 ML BAG IV.SIG PRN (11:54)
[2018-07-08] MEDS ORDERED: Succinylcholine Inj 200 MG/10 ML Vial IV.PUSH ONE (11:54)
[2018-07-08] MEDS ORDERED: fentaNYL 10 mcg/mL Premix Drip 2,500 MCG/250 ML BAG ONE (12:07)
[2018-07-08 12:19] LABS: Hemoglobin 10.2 gm/dL (11.6-15.3); Mean Corpuscular Hemoglobin 36.1 pg (27.0-34.0); Mean Corpuscular Volume 112.8 fL (80.0-100.0); Mean Platelet Volume 8.1 fL (7.0-11.0); Platelet Count 98 th/mm3 (150-450); Red Blood Count 2.84 mil/mm3 (4.00-5.30); Red Cell Distribution Width 18.1 % (11.6-17.2); White Blood Count 0.2 th/mm3 (4.0-11.0)
[2018-07-08 12:29] LABS: Activated Partial Thrombo Time 51.9 sec (23.4-31.7); INR 1.6 Ratio; Prothrombin Time 15.9 sec (9.8-11.6)
[2018-07-08] MEDS ORDERED: Pantoprazole Inj 40 MG Vial IV.PUSH ONE (12:37)
[2018-07-08] MEDS ORDERED: Oseltamivir Liq 30 MG/5 ML Oral Syringe PO ONE (12:38)
[2018-07-08 12:41] LABS: Alanine Aminotransferase 49 U/L (10-53); Albumin 1.7 g/dL (3.4-5.0); Anion Gap 20 meq/L (5-15); Aspartate Aminotransferase 273 U/L (15-37); Blood Urea Nitrogen 15 mg/dL (7-18); Calcium 7.5 mg/dL (8.5-10.1); Carbon Dioxide 17.9 meq/L (21.0-32.0); Chloride 99 meq/L (98-107); Glomerular Filtration Rate 25 mL/min (>89); Glucose,Random 107 mg/dL (74-106); Lipase 103 U/L (73-393); Magnesium 1.7 mg/dL (1.5-2.5); Sodium 137 meq/L (136-145)
--- NOTE | 2018-07-08 12:41 | XR ---
EXAM DATE: 07/08/2018 12:13 PM EST AGE/SEX: 68 years / Female INDICATIONS: Evaluate lung status, ET tube and NG tube placement. CLINICAL DATA: This is the patient's initial encounter. Patient reports that signs and symptoms have been present for 1 day and indicates a pain score of Nonresponsive. MEDICAL/SURGICAL HISTORY: . Carcinoma, not otherwise specified. Hypertension. Cardiovascular d isease. None. COMPARISON: [facility] [place]ST [place]ING[place] AP, 09/07/2017. . FINDINGS: Single AP view the chest. Endotracheal tube is now in place with the tip 3 cm above the yvette. Nasog astric tube is in place the tip below the [id number] of the radiograph. Lungs are grossly clear. N o evidence of pleural effusion or pneumothorax. Cardiomediastinal silhouette unchanged. CONCLUSION: Endotracheal tube and nasogastric tube in place. Electronically signed by: Jun Zhang MD 07/08/2018 12:40 PM EST
[2018-07-08 12:42] LABS: Alkaline Phosphatase 226 U/L (45-117); Total Protein 5.7 g/dL (6.4-8.2); Troponin I 0.08 ng/mL (0.02-0.05)
[2018-07-08 12:46] LABS: Potassium 3.8 meq/L (3.5-5.1)
[2018-07-08] MEDS ORDERED: Octreotide Inj 500 MCG in Sodium Chlor 0.9% Inj 500 ML IV.CONT SCH (13:00)
[2018-07-08 13:17] LABS: Lymphocytes 52 % (9-44); Monocytes 8 % (0-8); Tallied Nucleated RBC 50 (0-0)
[2018-07-08] MEDS ORDERED: Norepinephrine Inj 4 MG/4 ML Ampul ONE ×2 (13:23→15:02)
[2018-07-08 13:24] LABS: Pappenheimer Bodies Present; Platelet Morphology Normal (Normal)
[2018-07-08 13:25] LABS: Polychromasia 2.1 % (0.0-1.9)
[2018-07-08 13:48] LABS: Amorphous Sediment,Urine Many /hpf; Bacteria,Urine Occasional /hpf; Bilirubin,Urine Small (Negative); Color,Urine Amber (Yellw/Straw); Glucose,Urine (UA) Negative (Negative); Leukocyte Esterase,Urine Negative (Negative); Mucus,Urine Few /lpf (Occasional); Nitrite,Urine Negative (Negative); Specific Gravity,Urine 1.024 (1.002-1.035); Squamous Epithelial Cell,Urine 3 /hpf (0-5); Urobilinogen,Urine 4 or Greater mg/dL (Less than 2)
[2018-07-08 13:50] LABS: Clarity,Urine Hazy (Clear); Ictotest,Urine Positive (Negative)
[2018-07-08] MEDS ORDERED: Dextrose 50% in Water 50 ML Vial IV.PUSH PRN (13:56)
[2018-07-08] MEDS ORDERED: Bisacodyl 10 MG Supp RECTAL PRN (13:57)
[2018-07-08] MEDS ORDERED: Sod Chloride 0.9% Inj 1,000 ML IV.CONT SCH (14:00)
[2018-07-08] MEDS ORDERED: Artificial Tears Opth Drops 15 ML Bottle EACH EYE SCH (14:00)
[2018-07-08] MEDS ORDERED: Sodium Chlor 0.9% Inj 500 ML IV.SIG SCH (14:00)
[2018-07-08] MEDS ORDERED: Vancomycin Consult Pharmacy OTHER PRN (14:02)
[2018-07-08] MEDS ORDERED: Norepinephrine Inj 16 MG in Sodium Chlor 0.9% Inj 234 ML IV.CONT PRN (14:12)
--- NOTE | 2018-07-08 14:20 | ED ---
HPI General Chief complaint: Shortness of Breath/Dyspnea Stated complaint: Medical Time Seen by Provider: 07/08/18 11:31 Source: patient and EMS Mode of arrival: EMS Limitations: other History of Present Illness HPI narrative: Patient is a 68-year-old female with history of hepatocellular carcinoma who presents with complaint of right-sided abdominal pain for an unknown amount of time. She also complains of dyspnea. She does not know if the symptoms came on suddenly. She is unable to provide much history. She denies pain outside of her abdomen. She denies fever. She is very dyspneic and slightly confused on arrival. Onset (ago): unknown Location: abdomen Severity: similar to prior episodes Quality: other Pain Consistency: constant Relieving factors: none Exacerbating factors: none Associated symptoms: Reports shortness of breath Treatments prior to arrival: Reports none Related Data Home Medications Medication Instructions Recorded Confirmed amlodipine 10 mg PO DAILY 07/08/18 07/08/18 atorvastatin 20 mg PO DAILY 07/08/18 07/08/18 ferrous sulfate [iron] 325 mg PO DAILY 07/08/18 07/08/18 furosemide [Lasix] 40 mg PO DAILY 07/08/18 07/08/18 levothyroxine 25 mcg PO QAM 07/08/18 07/08/18 pantoprazole 40 mg PO DAILY 07/08/18 07/08/18 potassium chloride 10 meq PO DAILY 07/08/18 07/08/18 Allergies Allergy/AdvReac Type Severity Reaction Status Date / Time lisinopril Allergy Intermediate Swelling Unverified 09/07/17 02:31 Review of Systems ROS Unobtainable ROS Unobtainable: other [facility] Medical History Medical History HTN (hypertension) (Acute) Hepatocellular carcinoma (Acute) High cholesterol (Acute) Hypothyroid (Acute) Liver failure (Acute) Surgical History Surgical History History of cholecystectomy (Acute) History of colonoscopy (Acute) History of esophagogastroduodenoscopy (EGD) (Acute) History of tubal ligation (Acute) Family History Family History Sister No problems noted. Mother Family history- stomach cancer Brother Family history of lymphoma Social History Social History Substance History: No History of Abuse Smoking Status: Never smoker How Often Do You Have a Drink Containing Alcohol: Monthly or less Recent Travel in [facility] within the Last 8 Weeks: No Recent Out of Country Travel within the Last 8 Weeks: No Immunization History Tetanus Immunization: Unsure Exam Narrative Exam Narrative: GENERAL: Ill-appearing female SKIN: Focused skin assessment dry. HEAD: Atraumatic. Normocephalic. EYES: Pupils equal and round. No scleral icterus. No injection or drainage. ENT: No nasal bleeding or discharge. Mucous membranes pink and moist. Poor dentition with several loose teeth NECK: Trachea midline. No JVD. CARDIOVASCULAR: Tachycardic but regular. No murmur appreciated. RESPIRATORY: Tachypneic. Clear to auscultation. Breath sounds equal bilaterally. GASTROINTESTINAL: Abdomen distended with right-sided tenderness. Hepatosplenomegaly. MUSCULOSKELETAL: No obvious deformities. No clubbing. No cyanosis. Bilateral pitting edema NEUROLOGICAL: Awake and alert, confused. No obvious cranial nerve deficits. Able to move all 4 extremities PSYCHIATRIC: Anxious appearing. Procedures Central Line Placement Right IJ: Time Out Performed: Yes Patient Placed on Monitor/Pulse Ox: Yes MD Prep: mask, gown and gloves Central Line Prep: Chlorhexidine scrub and sterile drapes applied Ultrasound Used for Placement: Yes Central Line Lumen Inserted: triple Post Procedure: sutured in place, good blood return, all ports aspirated, flushed, capped and sterile dressing applied Post Procedure X-Ray: tip of catheter in good position and no pneumothorax seen Patient Tolerated Procedure: well Complications: none Intubation Time Out Performed: Yes Sedative: etomidate Mg Given: 20 Paralytic: succinylcholine Mg Given: 100 Laryngoscope: other ET Tube Size: 7.5 ET Tube Uncuffed: Yes Tube Secured Location: lips Tube Placement Confirmation: visualized tube passing through cords Patient Tolerated Procedure: other Intubation Complications: hypoxia Additional Comments: On initial attempt vocal cords were unable to be seen and thus initial attempted intubation was not successful. The patient was then bagged and intubated successfully with video laryngoscopy. Course Initial Documented Vital Signs Temperature 99.7 F H 07/08/18 11:20 Pulse Rate 137 H 07/08/18 11:20 Respiratory Rate 35 H 07/08/18 11:20 Blood Pressure 93/51 L 07/08/18 11:20 Pulse Oximetry 92 L 07/08/18 11:20 Last Documented Vital Signs Temperature 99.7 F H 07/08/18 11:20 Pulse Rate 126 H 07/08/18 11:44 Respiratory Rate 30 H 07/08/18 12:09 Blood Pressure 89/55 L 07/08/18 11:44 Pulse Oximetry 100 07/08/18 12:09 Critical Care Time Critical Care Time: Yes Total Critical Care Time: 40 Attestation: Aggregate critical care time was 40 minutes. Time to perform other separately billable procedures was not included in the critical care time. My time did not include minutes spent treating any other patients simultaneously or on activities that did not directly contribute to the patient's treatment. The services I provided to this patient were to treat and/or prevent clinically significant deterioration that could result in: , disability. I provided critical care services requiring my management, as noted below: Chart data review, documentation time, medication orders and management, vital sign assessments/reviewing monitor data, ordering and reviewing lab tests, ordering and interpreting/reviewing x-rays and diagnostic studies, care of the patient and discussion of the patient with the admitting physicians. Medical Decision Making MDM Narrative Medical decision making narrative: Patient is a 68-year-old female who presents with complaint of abdominal pain and shortness of breath. She had a pulse ox into the 50s on room air on arrival and only improved to the 70s/80s after being placed on a nonrebreather. The patient did state that she wanted to be intubated and did want to have chest compressions if it was necessary. Patient was then emergently intubated with RSI. Sepsis protocol was initiated and she was given empiric vancomycin and Zosyn. Despite extremity edema and abdominal distention, bedside US showed a collapsing IVC. She was given 30 cc/kg of normal saline to which her blood pressure initially responded however than her cap refill time greatly increased (prior to CT) and her extremities became cold. Blood pressure was then difficult to obtain though she had a palpable pulse and she was started on levophed. I then placed a central line in the right internal jugular vein. Dr. oNonan, tank crewmember, then arrived and placed an arterial line for blood pressure monitoring. The patient's blood pressure began to decrease yet again despite being on Levophed and per the tank crewmember she was started on multiple other pressors and given stress dose steroids. The patient was then taken to CT and straight up to the ICU. Dr Noonan is going to follow up on her CT. Of note, her stomach output was positive for blood thus she was given 80 mg protonix IVP. Guaiac was negative. She was profoundly neutropenic. Lab also called to inform me that the peripheral smear did have visible bacteria. Medical Screen Exam Complete: Yes Emergency Medical Condition: Yes Differential Diagnosis Differential Diagnosis: Diagnosis includes but is not limited to sepsis, abdominal perforation, hepatorenal syndrome. Medical Records Medical records reviewed: Yes I reviewed the patient's medical records. Lab Data Lab results reviewed: Yes I reviewed the patient's lab results. Result diagrams: 07/08/18 11:54 07/08/18 11:54 Lab Results 07/08/18 07/08/18 07/08/18 Range/Units 02:54 11:54 11:54 WBC 0.2 L (4.0-11.0) th/mm3 RBC 2.84 L (4.00-5.30) mil/mm3 Hgb 10.2 L (11.6-15.3) gm/dL Hct 32.0 L (35.0-46.0) % MCV 112.8 H (80.0-100.0) fL MCH 36.1 H (27.0-34.0) pg MCHC 32.0 (32.0-36.0) % RDW 18.1 H (11.6-17.2) % Plt Count 98 L (150-450) th/mm3 MPV 8.1 (7.0-11.0) fL Prelim Diff (Auto) Manual diff required WBC Differential Manual diff final Seg Neuts % (Manual) 36 (16-70) % Band Neuts % (Manual) 4 (0-6) % Lymphocytes % (Manual) 52 H (9-44) % Monocytes % (Manual) 8 (0-8) % Abs Neuts (Manual) 0.1 L* (1.8-7.7) th/mm3 Nucleated RBCs/100 WBC 200 H (0-0) /100 WBC Differential Comment . Platelet Estimate Low L (Normal) Platelet Morphology Normal (Normal) Polychromasia 2.1 H (0.0-1.9) % Pappenheimer Bodies Present H (None) PT 15.9 H (9.8-11.6) sec INR 1.6 Ratio APTT 51.9 H (23.4-31.7) sec Fibrinogen (227-377) mg/dL Puncture Site Jo Patient Temperature 98.6 O2 Saturation 97 (90-100) % ABG pH 7.63 H* (7.380-7.420) ABG pCO2 49 H (38-42) mmHg ABG pO2 90 (61-120) mmHg ABG HCO3 53 H (22-26) mmol/L ABG O2 Content 10.2 L (12.0-20.0) Vol % ABG Base Excess 27.3 H (-2-2) mmol/L ABG Methemoglobin 0.5 (0-2) % Hemoglobin 7.4 L* (12.0-16.0) G/DL Carboxyhemoglobin 1.5 (0-4) % O2 Delivery Device Vent Vent Setting See comments Inspired O2 100 % Critical Value Yes Sodium (136-145) meq/L Potassium (3.5-5.1) meq/L Chloride (98-107) meq/L Carbon Dioxide (21.0-32.0) meq/L Anion Gap (5-15) meq/L BUN (7-18) mg/dL Creatinine (0.50-1.00) mg/dL Estimated GFR (>89) mL/min Random Glucose (74-106) mg/dL Lactic Acid (0.4-2.0) mmol/L Calcium (8.5-10.1) mg/dL Magnesium (1.5-2.5) mg/dL Total Bilirubin (0.2-1.0) mg/dL AST (15-37) U/L ALT (10-53) U/L Alkaline Phosphatase (45-117) U/L Troponin I (0.02-0.05) ng/mL Total Protein (6.4-8.2) g/dL Albumin (3.4-5.0) g/dL Lipase (73-393) U/L Urine Color (Yellw/Straw) Urine Clarity (Clear) Urine pH (5.0-8.5) Ur Specific [place] (1.002-1.035) Urine Protein (Neg-Trace) mg/dL Urine Glucose (UA) (Negative) mg/dL Urine Ketones (Negative) mg/dL Urine Occult Blood (Negative) Urine Nitrate (Negative) Urine Bilirubin (Negative) Urine Ictotest (Negative) Urine Urobilinogen (Less than 2) mg/dL Ur Leukocyte Esterase (Negative) Urine RBC (0-3) /hpf Urine WBC (0-5) /hpf Ur Squamous Epith Cells (0-5) /hpf Amorphous Sediment (None) /hpf Urine Bacteria (None) /hpf Urine Mucus (Occasional) /lpf Micro UA Comment Ur Microscopic Review Urine Culture Comments 07/08/18 07/08/18 07/08/18 Range/Units 11:54 11:54 11:57 WBC (4.0-11.0) th/mm3 RBC (4.00-5.30) mil/mm3 Hgb (11.6-15.3) gm/dL Hct (35.0-46.0) % MCV (80.0-100.0) fL MCH (27.0-34.0) pg MCHC (32.0-36.0) % RDW (11.6-17.2) % Plt Count (150-450) th/mm3 MPV (7.0-11.0) fL Prelim Diff (Auto) WBC Differential Seg Neuts % (Manual) (16-70) % Band Neuts % (Manual) (0-6) % Lymphocytes % (Manual) (9-44) % Monocytes % (Manual) (0-8) % Abs Neuts (Manual) (1.8-7.7) th/mm3 Nucleated RBCs/100 WBC (0-0) /100 WBC Differential Comment Platelet Estimate (Normal) Platelet Morphology (Normal) Polychromasia (0.0-1.9) % Pappenheimer Bodies (None) PT (9.8-11.6) sec INR Ratio APTT (23.4-31.7) sec Fibrinogen 211 L (227-377) mg/dL Puncture Site Patient Temperature O2 Saturation (90-100) % ABG pH (7.380-7.420) ABG pCO2 (38-42) mmHg ABG pO2 (61-120) mmHg ABG HCO3 (22-26) mmol/L ABG O2 Content (12.0-20.0) Vol % ABG Base Excess (-2-2) mmol/L ABG Methemoglobin (0-2) % Hemoglobin (12.0-16.0) G/DL Carboxyhemoglobin (0-4) % O2 Delivery Device Vent Setting Inspired O2 % Critical Value Sodium 137 (136-145) meq/L Potassium 3.8 (3.5-5.1) meq/L Chloride 99 (98-107) meq/L Carbon Dioxide 17.9 L (21.0-32.0) meq/L Anion Gap 20 H (5-15) meq/L BUN 15 (7-18) mg/dL Creatinine 2.31 H (0.50-1.00) mg/dL Estimated GFR 25 L (>89) mL/min Random Glucose 107 H (74-106) mg/dL Lactic Acid 13.0 H* (0.4-2.0) mmol/L Calcium 7.5 L (8.5-10.1) mg/dL Magnesium 1.7 (1.5-2.5) mg/dL Total Bilirubin 6.7 H (0.2-1.0) mg/dL AST 273 H (15-37) U/L ALT 49 (10-53) U/L Alkaline Phosphatase 226 H (45-117) U/L Troponin I 0.08 H (0.02-0.05) ng/mL Total Protein 5.7 L (6.4-8.2) g/dL Albumin 1.7 L (3.4-5.0) g/dL Lipase 103 (73-393) U/L Urine Color (Yellw/Straw) Urine Clarity (Clear) Urine pH (5.0-8.5) Ur Specific [place] (1.002-1.035) Urine Protein (Neg-Trace) mg/dL Urine Glucose (UA) (Negative) mg/dL Urine Ketones (Negative) mg/dL Urine Occult Blood (Negative) Urine Nitrate (Negative) Urine Bilirubin (Negative) Urine Ictotest (Negative) Urine Urobilinogen (Less than 2) mg/dL Ur Leukocyte Esterase (Negative) Urine RBC (0-3) /hpf Urine WBC (0-5) /hpf Ur Squamous Epith Cells (0-5) /hpf Amorphous Sediment (None) /hpf Urine Bacteria (None) /hpf Urine Mucus (Occasional) /lpf Micro UA Comment Ur Microscopic Review Urine Culture Comments 11/15/18 Range/Units 13:08 WBC (4.0-11.0) th/mm3 RBC (4.00-5.30) mil/mm3 Hgb (11.6-15.3) gm/dL Hct (35.0-46.0) % MCV (80.0-100.0) fL MCH (27.0-34.0) pg MCHC (32.0-36.0) % RDW (11.6-17.2) % Plt Count (150-450) th/mm3 MPV (7.0-11.0) fL Prelim Diff (Auto) WBC Differential Seg Neuts % (Manual) (16-70) % Band Neuts % (Manual) (0-6) % Lymphocytes % (Manual) (9-44) % Monocytes % (Manual) (0-8) % Abs Neuts (Manual) (1.8-7.7) th/mm3 Nucleated RBCs/100 WBC (0-0) /100 WBC Differential Comment Platelet Estimate (Normal) Platelet Morphology (Normal) Polychromasia (0.0-1.9) % Pappenheimer Bodies (None) PT (9.8-11.6) sec INR Ratio APTT (23.4-31.7) sec Fibrinogen (227-377) mg/dL Puncture Site Patient Temperature O2 Saturation (90-100) % ABG pH (7.380-7.420) ABG pCO2 (38-42) mmHg ABG pO2 (61-120) mmHg ABG HCO3 (22-26) mmol/L ABG O2 Content (12.0-20.0) Vol % ABG Base Excess (-2-2) mmol/L ABG Methemoglobin (0-2) % Hemoglobin (12.0-16.0) G/DL Carboxyhemoglobin (0-4) % O2 Delivery Device Vent Setting Inspired O2 % Critical Value Sodium (136-145) meq/L Potassium (3.5-5.1) meq/L Chloride (98-107) meq/L Carbon Dioxide (21.0-32.0) meq/L Anion Gap (5-15) meq/L BUN (7-18) mg/dL Creatinine (0.50-1.00) mg/dL Estimated GFR (>89) mL/min Random Glucose (74-106) mg/dL Lactic Acid (0.4-2.0) mmol/L Calcium (8.5-10.1) mg/dL Magnesium (1.5-2.5) mg/dL Total Bilirubin (0.2-1.0) mg/dL AST (15-37) U/L ALT (10-53) U/L Alkaline Phosphatase (45-117) U/L Troponin I (0.02-0.05) ng/mL Total Protein (6.4-8.2) g/dL Albumin (3.4-5.0) g/dL Lipase (73-393) U/L Urine Color [place] (Yellw/Straw) Urine Clarity Hazy H (Clear) Urine pH 5.0 (5.0-8.5) Ur Specific [place] 1.024 (1.002-1.035) Urine Protein 100 H (Neg-Trace) mg/dL Urine Glucose (UA) Negative (Negative) mg/dL Urine Ketones Negative (Negative) mg/dL Urine Occult Blood Negative (Negative) Urine Nitrate Negative (Negative) Urine Bilirubin Small H (Negative) Urine Ictotest Positive H (Negative) Urine Urobilinogen 4 or greater (Less than 2) mg/dL Ur Leukocyte Esterase Negative (Negative) Urine RBC 2 (0-3) /hpf Urine WBC 2 (0-5) /hpf Ur Squamous Epith Cells 3 (0-5) /hpf Amorphous Sediment Many H (None) /hpf Urine Bacteria Occasional H (None) /hpf Urine Mucus Few H (Occasional) /lpf Micro UA Comment Culture not ind Ur Microscopic Review Not Reportable Urine Culture Comments Culture not ind Imaging Data Attestation: I personally reviewed and interpreted this imaging study as follows : Radiologist's impression: Chest X-Ray 07/08/18 11:31 CONCLUSION: Endotracheal tube and nasogastric tube in place. Chest X-Ray 07/08/18 14:07 CONCLUSION: 1. No pneumothorax status post placement of right internal jugular central line which has its tip at the junction of superior vena cava right atrium. 2. Worsening bilateral pulmonary infiltrates are noted suggestive of worsening pulmonary edema or pneumonia. Clinical correlation is recommended. Discharge Plan Discharge Disposition Patient Disposition: 30 Still Patient Discharge Condition Condition: Critical Discharge Details Diagnosis: Septic shock, Bacteremia, Neutropenia, Hepatocellular carcinoma, PURA (acute kidney injury) Physicians Team ED Provider: Anila Pham Primary Care Provider: Yamileth Aranda Attending Provider: Epi Noonan Other Providers: Jennifer Rodriguez ; Newton Vinson Discharge Interventions Interventions: Vital Signs Last Done: 07/08/18 11:44 Status ED Status: Admitted Patient
[2018-07-08] MEDS ORDERED: EPINEPHrine (1:1000) Inj 4 MG in Sodium Chlor 0.9% Inj 246 ML IV.CONT PRN (14:32)
[2018-07-08] MEDS ORDERED: Sodium Bicarbonate 8.4% Inj 150 MEQ in Water for Inj, Sterile 850 ML IV.CONT SCH (14:34)
[2018-07-08] MEDS ORDERED: Sodium Bicarbonate 8.4% Inj 50 MEQ/50 ML Syringe IV.PUSH ONE (14:34)
[2018-07-08] MEDS ORDERED: Sodium Bicarbonate 8.4% Inj 50 MEQ/50 ML Syringe ONE (14:49)
--- NOTE | 2018-07-08 14:55 | XR ---
EXAM DATE: 07/08/2018 2:50 PM EST AGE/SEX: 68 years / Female INDICATIONS: Central line placement, worsening lung status. CLINICAL DATA: This is the patient's subsequent encounter. Patient reports that signs and symptoms h ave been present for 1 day and indicates a pain score of Nonresponsive. MEDICAL/SURGICAL HISTORY: . Carcinoma, not otherwise specified. Hypertension. Cardiovascular di sease. None. [place] [facility] [place]. . FINDINGS: Right internal jugular central line has its tip at the junction of superior vena cava and right atriu m. There is no pneumothorax or endotracheal tube remains in good position 3 cm above the yvette. A na sogastric tube has tip below diaphragm. Worsening bilateral pulmonary infiltrates are noted suggestiv e of worsening pulmonary edema or pneumonia. Clinical correlation is recommended. CONCLUSION: 1. No pneumothorax status post placement of right internal jugular central line which has its tip at the junction of superior vena cava right atrium. 2. Worsening bilateral pulmonary infiltrates are noted suggestive of worsening pulmonary edema or pn eum[place]. Clinical correlation is recommended. Electronically signed by: Brodie Contreras MD 07/08/2018 2:53 PM EST
[2018-07-08] MEDS ORDERED: Vasopressin Inj 40 UNIT in Sodium Chlor 0.9% Inj 98 ML IV.CONT SCH (15:00)
[2018-07-08] MEDS ORDERED: Hydrocortisone Sod Succinate 100 MG Vial IV.PUSH SCH (15:00)
[2018-07-08] MEDS ORDERED: Vancomycin Inj 500 MG in Sodium Chlor 0.9% Inj 100 ML IV.SIG ONE (15:00)
[2018-07-08 15:06] LABS: ABG Base Excess 27.3 mmol/L (-2-2); ABG PCO2 49 mmHg (38-42); ABG PO2 90 mmHg (61-120)
--- NOTE | 2018-07-08 15:27 | P.HPCC ---
History of Present Illness Service: Critical care medicine Primary Care Physician: Yamileth Aranda MD Chief Complaint: Abdominal pain/severe sepsis History of Present Illness: This is a 68-year-old female. Date of admission 07/08/2018 with past medical history includes hepatocellular carcinoma receiving localized treatment to the liver, chronic active gastritis with history of gastric ulcers 2016, anemia on macrocytic chronic, history of EtOH, hypertension and hypothyroidism. Patient presents to [facility] acutely per ED physician is no family is currently available with planes of abdominal pain and lethargy. She was tachypneic with a respiratory rate in the 50s. She required emergent intubation in the ED. Afterwards, patient had borderline blood pressures and a central line was placed in the right internal jugular vein and patient was started on norepinephrine drip. Workup included acute kidney injury with a creatinine currently 2.31. Baseline is normal. Elevated total bilirubin 6.7. Elevated AST of. Patient had a lactic acidosis of 13. Patient was coagulopathic with elevated INR, PTT and low fibrinogen. Patient white blood cell count of 0.2. Macrocytic anemia 10 and 98 platelets. Chest x-ray revealed no signs of pneumothorax. Worsening pulmonary edema. No free air under the diaphragm. CT of the abdomen/pelvis is currently pending. Patient was started on piperacillin/tazobactam, vancomycin and fluconazole. An arterial line was placed in the left femoral region. Inpatient Certification: I certify that the inpatient services were ordered in accordance with Medicare regulations governing the order. 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 Mother Family history- stomach cancer Brother Family history of lymphoma - Tobacco History Smoking Status: Never smoker - Alcohol History How Often Do You Have a Drink Containing Alcohol: Monthly or less - Substance Use History Substance History: No History of Abuse - Travel History Recent Travel in the [place] Within the Last 8 Weeks: No Recent Travel Out of the Country Within the Last 8 Weeks: No - Immunization History Tetanus Immunization: Unsure Medications and Allergies Active Medications: Active Medications Al Hydroxide/Mg Hydroxide (Milk Of Elizabet Liq) 30 ml PO Q12H PRN PRN Reason: Mild Constipation Albuterol (Duoneb Neb (Prn)) 2.5 ampul NEB Q2HR NEB PRN PRN Reason: SHORTNESS OF BREATH/WHEEZING Albuterol (Duoneb Neb (Prerna)) 1 ampul NEB Q4HR NEB PRERNA Artificial Tears (Tears Naturale Opth Drops) 1 drop EACH EYE Q8H [facility] Bisacodyl (Dulcolax Supp) 10 mg RECTAL DAILY PRN PRN Reason: SEVERE CONSITIPATION Chlorhexidine Gluconate (Peridex 0.12% Oral Kit) 15 ml OROPHARYNG BID@0800, 2000 [facility] Chlorhexidine Gluconate (Chlorhexidine 2% Cloth) 3 pack TOPICAL DAILY@0400 PRERNA Stop: 07/14/18 03:59 Chlorhexidine Gluconate (Chlorhexidine 2% Cloth) 3 pack TOPICAL DAILY@0400 PRN PRN Reason: Extra cloth needed Stop: 07/14/18 03:59 Dextrose (D50w Vial) 50 ml IV.PUSH UNSCH PRN PRN Reason: PER HYPOGLYCEMIA PROTOCOL Glucagon (Glucagon Inj) 1 mg OTHER PRN PRN PRN Reason: for Hypoglycemia Protocol Hydrocortisone Sodium Succinate (Solucortef Inj) 100 mg IV.PUSH Q8H PRERNA Sodium Chloride (Ns Inj) 1,000 mls @ 0 mls/hr IV.SIG .Q0M [facility] Last Admin: 07/08/18 12:16 Dose: 999 mls/hr Fentanyl (Fentanyl 10 Mcg/Ml Premix Drip) 2,500 mcg in 250 mls @ 5 mls/hr IV.SIG TITRATE PRN; Protocol PRN Reason: Per Protocol Last Admin: 07/08/18 12:18 Dose: 50 mcg/hr, 5 mls/hr Piperacillin/Tazobactam/Dextrose (Zosyn 2.25 Gm Premix) 50 mls @ 100 mls/hr IV.SIG Q6H PRERNA Fluconazole (Diflucan 200 Mg Premix Bag) 100 mls @ 100 mls/hr IV.SIG Q24H PRERNA Norepinephrine Bitartrate 16 (mg/ Sodium Chloride) 250 mls @ 1.87 mls/hr IV.CONT TITRATE PRN; Protocol PRN Reason: See Protocol Vasopressin 40 unit/ Sodium (Chloride) 100 mls @ 6 mls/hr IV.CONT CONT PRERNA; Protocol Epinephrine HCl 4 mg/ Sodium (Chloride) 250 mls @ 11.25 mls/hr IV.CONT TITRATE PRN; Protocol PRN Reason: Georgina protocol Vancomycin HCl 500 mg/ Sodium (Chloride) 100 mls @ 200 mls/hr IV.SIG ONCE ONE Stop: 07/08/18 15:29 Sodium Bicarbonate 150 meq/ (Sterile Water) 1,000 mls @ 150 mls/hr IV.CONT .Q6H40M [facility] Insulin Aspart (Novolog Insulin Correctional Sugar Inj) 0 unit SQ Q6HR PRERNA; Protocol Lactulose (Lactulose Liq) 30 ml PO DAILY PRN PRN Reason: SEVERE CONSITIPATION Midazolam HCl (Versed Inj) 1 mg IV.PUSH Q4H PRN PRN Reason: AGITATION Last Admin: 07/08/18 12:17 Dose: 1 mg Miscellaneous Medication () 1 each OROPHARYNG 0000,0400,1200,1600 [facility] Ondansetron HCl (Zofran Inj) 4 mg IV.PUSH Q6H PRN PRN Reason: NAUSEA OR VOMITING Pantoprazole Sodium (Protonix Inj) 40 mg IV.PUSH DAILY [facility] Pharmacy Profile Note (Vancomycin Consult Pharmacy) 1 each OTHER UNSCH PRN PRN Reason: Pharmacy to dose Senna/Docusate Sodium (Shaista-Colace) 1 tab PO BID [facility] Sennosides (Senokot) 17.2 mg PO Q12H PRN PRN Reason: Moderate Constipation Sodium Chloride (Ns Flush) 2 ml IV.FLUSH BID [facility] Sodium Chloride (Ns Flush) 2 ml IV.FLUSH PRN PRN PRN Reason: FLUSH AFTER USING IV ACCESS Allergies Allergy/AdvReac Type Severity Reaction Status Date / Time lisinopril Allergy Intermediate Swelling Unverified 09/07/17 02:31 Home Medications Medication Instructions Recorded Confirmed Type amlodipine 10 mg PO DAILY 07/08/18 07/08/18 History atorvastatin 20 mg PO DAILY 07/08/18 07/08/18 History ferrous sulfate [iron] 325 mg PO DAILY 07/08/18 07/08/18 History furosemide [Lasix] 40 mg PO DAILY 07/08/18 07/08/18 History levothyroxine 25 mcg PO QAM 07/08/18 07/08/18 History pantoprazole 40 mg PO DAILY 07/08/18 07/08/18 History potassium chloride 10 meq PO DAILY 07/08/18 07/08/18 History Results - Labs CBC & Chem 7: 07/08/18 11:54 07/08/18 11:54 Labs: Short CBC 07/08/18 Range/Units 11:54 WBC 0.2 L (4.0-11.0) th/mm3 Hgb 10.2 L (11.6-15.3) gm/dL Hct 32.0 L (35.0-46.0) % Plt Count 98 L (150-450) th/mm3 BMP 07/08/18 11:54 Sodium 137 Potassium 3.8 Chloride 99 Carbon Dioxide 17.9 L BUN 15 Creatinine 2.31 H Calcium 7.5 L Cardiac Enzymes 07/08/18 Range/Units 11:54 Troponin I 0.08 H (0.02-0.05) ng/mL Liver Function 07/08/18 Range/Units 11:54 Total Bilirubin 6.7 H (0.2-1.0) mg/dL AST 273 H (15-37) U/L ALT 49 (10-53) U/L Alkaline Phosphatase 226 H (45-117) U/L Albumin 1.7 L (3.4-5.0) g/dL Urine 07/08/18 Range/Units 13:08 Urine Color Hamida (Yellw/Straw) Urine Clarity Hazy H (Clear) Urine pH 5.0 (5.0-8.5) Ur Specific [place] 1.024 (1.002-1.035) Urine Protein 100 H (Neg-Trace) mg/dL Urine Glucose (UA) Negative (Negative) mg/dL - Imaging Impressions Chest X-Ray 07/08/18 11:31 CONCLUSION: Endotracheal tube and nasogastric tube in place. Chest X-Ray 07/08/18 14:07 CONCLUSION: 1. No pneumothorax status post placement of right internal jugular central line which has its tip at the junction of superior vena cava right atrium. 2. Worsening bilateral pulmonary infiltrates are noted suggestive of worsening pulmonary edema or pneumonia. Clinical correlation is recommended. Exam Vital signs: Vital Signs 07/08/18 11:20 07/08/18 11:31 07/08/18 11:44 Temperature 99.7 F H Pulse Rate 137 H 126 H Respiratory Rate 35 H 51 H Blood Pressure 93/51 L 89/55 L Pulse Oximetry 92 L 82 L 92 L 07/08/18 12:09 Temperature Pulse Rate Respiratory Rate 30 H Blood Pressure Pulse Oximetry 100 Intake & Output 07/07/18 07/08/18 07/08/18 18:59 06:59 18:59 Weight 63.957 kg - Constitutional severe distress, obese, diaphoretic, obtunded - Routine HEENT Exam Head: Present: normocephalic, atraumatic Eye: Present: EOMI, PERRL, normal accommodation ENT: Present: mucous membranes dry - Routine Neck Exam Present: supple, full ROM. Absent: JVD - Routine Chest/Breast/Axilla Exam Chest wall: Absent: tenderness Breast: Absent: tenderness Axillae: Absent: lymphadenopathy - Routine Respiratory Exam Present: accessory muscle use, decreased breath sounds, crackles, diminished air movement - Routine Cardiovascular Exam Present: S1, S2, tachycardia. Absent: murmur - Routine Abdominal Exam Present: distended, firm. Absent: normoactive bowel sounds, mass, hernia, surgical scars - Routine Extremities Exam Present: edema. Absent: cyanosis, clubbing - Routine Skin Exam Present: intact - Routine Neurological Exam Present: CN II-XII intact. Absent: alert, oriented X3 Septic Shock Reassessment Septic shock perfusion: reassessment completed Caprini VTE Risk Assessment Caprini VTE Risk Assessment: Moderate/High Risk (score >= 2) VTE Pharmacological Exception Reason: Coagulopathy,INR elevated, End Stage Liver Disease Caprini Risk Assessment Model: Point Value = 1 Point Value = 2 Point Value = 3 Point Value = 5 Age 41-60 Minor surgery BMI > 25 kg/m2 Swollen legs Varicose veins or History of unexplained or recurrent spontaneous Oral contraceptives or hormone replacement Sepsis (< 1 month) Serious lung disease, including pneumonia (< 1 month) Abnormal pulmonary function Acute myocardial infarction Congestive heart failure (< 1 month) History of inflammatory bowel disease Medical patient at bed rest Age 61-74 Arthroscopic surgery Major open surgery (> 45 min) Laparoscopic surgery (> 45 min) Malignancy Confined to bed (> 72 hours) Immobilizing plaster cast Central venous access Age >= 75 History of VTE Family history of VTE Factor V Leiden Prothrombin [id number] Lupus anticoagulant Anticardiolipin antibodies Elevated serum homocysteine Heparin-induced thrombocytopenia Other congenital or acquired thrombophilia Stroke (< 1 month) Elective arthroplasty Hip, pelvis, or leg fracture Acute spinal cord injury (< 1 month) Prophylaxis Regimen: Total Risk Factor Score Risk Level Prophylaxis Regimen 0-1 Low Early ambulation 2 Moderate Order ONE of the following: *Sequential Compression Device (SCD) *Heparin 5000 units SQ BID 3-4 Higher Order ONE of the following medications: *Heparin 5000 units SQ TID *Enoxaparin/Lovenox 40 mg SQ daily (WT < 150 kg, CrCl > 30 mL/min) *Enoxaparin/Lovenox 30 mg SQ daily (WT < 150 kg, CrCl > 10-29 mL/min) *Enoxaparin/Lovenox 30 mg SQ BID (WT < 150 kg, CrCl > 30 mL/min) AND/OR *Sequential Compression Device (SCD) 5 or more Highest Order ONE of the following medications: *Heparin 5000 units SQ TID (Preferred with Epidurals) *Enoxaparin/Lovenox 40 mg SQ daily (WT < 150 kg, CrCl > 30 mL/min) *Enoxaparin/Lovenox 30 mg SQ daily (WT < 150 kg, CrCl > 10-29 mL/min) *Enoxaparin/Lovenox 30 mg SQ BID (WT < 150 kg, CrCl > 30 mL/min) AND *Sequential Compression Device (SCD) Assessment and Plan - Assessment and Plan Plan: Neuro'Psych: History of EtOH Propofol/fentanyl drips for sedation/analgesia while intubated Goal of RA SS -2 Daily sedation vacation Holding temazepam 30 mg at night CV: Severe sepsis Lactic acidosis History of essential hypertension History of hyperlipidemia Elevated troponin Serial lactates until cleared Received 2.5 L crystalloid in ED. Currently norepinephrine, vasopressin to maintain mean arterial pressure greater than equal 65 Holding amlodipine 10 mg daily, hydrochlorothiazide 25 mg in light of hypotension Holding atorvastatin 40 mg daily in light of acute liver injury Follow-up on EKG. Serial troponins until downward trend Resp: Acute respiratory failure secondary to severe sepsis PRVC ventilation Ventilator bundle Albuterol/ipratropium aerosols every 4 hours with albuterol aerosols every 2 as needed dyspnea Spontaneous breathing trials when clinically indicated Follow-up on post intubation chest x-ray and ABG GI: Elevated AST total bilirubin elevated History of hepatocellular carcinoma [facility] CT abdomen/pelvis pending NG tube to low intermittent wall suction Received 80 mg IV pantoprazole in ED. Currently 40 mg IV twice daily Docusate serum/senna 1 tablet bid for bowel regimen : Catheter has been placed for accurate I's and O's in a critically ill patient Endo: Hypothyroidism Sliding scale insulin Accu-Cheks to maintain euglycemia Previously on Levoxyl 25 mcg p.o. daily. Check TSH Renal: Acute kidney injury Follow-up on CT abdomen/pelvis rule out hydronephrosis Check urine eosinophils, sodium and creatinine Monitor urine output Accurate I's and O's Heme: Pancytopenia including leukopenia, thrombocytopenia and macrocytic anemia Neutropenic precautions Monitor CBC daily./Follow trends. 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 ID: Severe sepsis etiology unclear. Placed on piperacillin/tazobactam, vancomycin and fluconazole Blood cultures x2 pending at the present time. Consult infectious disease for assistance in management antibiotics and antifungals FEN: Replace electrolytes as clinically indicated MSK: PT evaluate and treat Access -Utilize peripheral IV. Central line if indicated Prophylaxis - -GI pantoprazole - -DVT SCD/holding pharmacologic prophylaxis in light of coagulopathic state Critical care time 35 minutes. Code Status: Full code Discussed Condition With: ED physician. We did talk to family. Care plan discussed and all questions answered.
--- NOTE | 2018-07-08 15:43 | CT ---
EXAM DATE: 07/08/2018 3:23 PM EST AGE/SEX: 68 years / Female INDICATIONS: Abdominal pain, incontinence of stool. CLINICAL DATA: This is the patient's initial encounter. Patient reports that signs and symptoms have been present for 1 day and indicates a pain score of Nonresponsive. MEDICAL/SURGICAL HISTORY: Hypertension. Hypothyroidism. Liver failure, hepatocellular carcinom a. None. RADIATION DOSE: 9.43 CTDI (mGy) COMPARISON: [facility], CT ABDOMEN AND PELVIS W/ CONTRAST, 10/27/2016. . TECHNIQUE: Multiple contiguous axial images were obtained through the abdomen. Images were obtained using multiple row detector helical technique. Using automated exposure control and adjustment of the mA and/or kV according to patient size, radiation dose was kept as low as reasonably achievable to o btain optimal diagnostic quality images. DICOM format image data is available electronically for rev iew and comparison. FINDINGS: Lower Lungs: Dense consolidative changes in the posterior lung bases bilaterally Liver: Liver is almost completely replaced by low-density masses. Multiple gallstones present. Spleen: Homogeneous density without enlargement. Pancreas: Unremarkable without mass or calcification. Kidneys: Normal in size and shape. No evidence of mass or hydronephrosis. Adrenal Glands: Unremarkable. Aorta: The aorta and proximal iliac vessels are grossly unremarkable without aneurysmal dilation. Bowel/Mesentery: Nasogastric tube in good position. Mild nonspecific distention of proximal small chandler wel. Colon is decompressed. Moderate ascites Abdominal Wall: Umbilical hernia containing fluid and nodular density, potentially related to perito joseph carcinomatosis Retroperitoneum: No evidence of adenopathy in the retrocrural, para-aortic, or deep pelvic regions. Bladder: Decompressed with Briggs catheter. Reproductive Organs: No abnormal masses or calcifications seen. Inguinal: Left groin vascular catheter Bony Structures: Unremarkable. CONCLUSION: 1. Liver replaced by low-density masses. 2. Ascites. Possible peritoneal carcinomatosis 3. Dense consolidative changes in the lung bases Electronically signed by: Oleg Walden MD 07/08/2018 3:42 PM EST
[2018-07-08 15:58] LABS: ABG Base Excess 28.1 mmol/L (-2-2); ABG PCO2 63 mmHg (38-42); ABG PO2 57 mmHG (61-120)
[2018-07-08] MEDS ORDERED: Oral Hygiene Kit OROPHARYNG SCH (16:00)
[2018-07-08] MEDS ORDERED: Dextrose 10% in Water Inj 500 ML IV.CONT SCH (16:00)
[2018-07-08] MEDS ORDERED: Sodium Bicarbonate 8.4% Inj 150 MEQ in Dextrose 5% in Water Inj 850 ML IV.CONT SCH ×2 (17:00)
[2018-07-08 17:41] LABS: Sodium,Urine Random 5 meq/L
[2018-07-08] MEDS ORDERED: Piperacil/Tazo 2.25 GM Premix 50 ML IV.SIG SCH (18:00)
[2018-07-08] MEDS ORDERED: Insulin NovoLOG Aspart Correctional Sugar Inj SQ SCH (18:00)
[2018-07-08 18:03] VITALS: BP 65/44; PULSE 120; RESP 23; TEMP 96.2; O2SAT 78
--- NOTE | 2018-07-08 18:19 | P.DN ---
- Provider Primary care physician: Yamileth Aranda MD Admitting clinician: Epi Noonan Attending physician on admission: Epi Noonan Consults: 07/08/18 14:33 HUB Only Consult Order Routine Consulting Provider: Jennifer Rodriguez 07/08/18 15:14 Consult to Hematology Routine Consulting Provider: Newton Vinson Reason for Consultation: Patient known to Dr.Awais Rivera. Known hepatocellular carcinoma. Neutropenic fever/sepsis Notified:: Office Spoke with:: SILVIANO Date Notified:: 07/08/18 Time Notified:: 15:22 Comments:: DR. RIVERA NO LONGER COMES TO [facility] Ordering Provider: MUKUND 07/08/18 15:52 Consult to Infectious Diseases Routine Consulting Provider: Grazyna Simon Reason for Consultation: Severe sepsis/infectious disease. Assistance with antibiotic management. Notified:: Service Spoke with:: OFE Date Notified:: 07/08/18 Time Notified:: 15:56 Ordering Provider: MUKUND Pronouncing clinician: Epi Noonan - Admitting Diagnosis (1) Septic shock (2) Bacteremia (3) Neutropenia (4) Hepatocellular carcinoma (5) PURA (acute kidney injury) - Diagnosis at Time of (1) Septic shock Diagnosis: Principal (2) Bacteremia Diagnosis: Principal (3) Neutropenia Diagnosis: Principal (4) Hepatocellular carcinoma Diagnosis: Principal (5) PURA (acute kidney injury) Diagnosis: Principal - Date and Time Date of admission: 07/08/18 13:47 Date of : 07/08/18 Time of : 16:55 - Summary Details: Neuro'Psych: History of EtOH Propofol/fentanyl drips for sedation/analgesia while intubated Goal of RA SS -2 Daily sedation vacation Holding temazepam 30 mg at night CV: Severe sepsis Lactic acidosis History of essential hypertension History of hyperlipidemia Elevated troponin Serial lactates until cleared Received 2.5 L crystalloid in ED. Currently norepinephrine, vasopressin to maintain mean arterial pressure greater than equal 65 Holding amlodipine 10 mg daily, hydrochlorothiazide 25 mg in light of hypotension Holding atorvastatin 40 mg daily in light of acute liver injury Follow-up on EKG. Serial troponins until downward trend Resp: Acute respiratory failure secondary to severe sepsis PRVC ventilation Ventilator bundle Albuterol/ipratropium aerosols every 4 hours with albuterol aerosols every 2 as needed dyspnea Spontaneous breathing trials when clinically indicated Follow-up on post intubation chest x-ray and ABG GI: Elevated AST total bilirubin elevated History of hepatocellular carcinoma [facility] CT abdomen/pelvis pending NG tube to low intermittent wall suction Received 80 mg IV pantoprazole in ED. Currently 40 mg IV twice daily Docusate serum/senna 1 tablet bid for bowel regimen : Catheter has been placed for accurate I's and O's in a critically ill patient Endo: Hypothyroidism Sliding scale insulin Accu-Cheks to maintain euglycemia Previously on Levoxyl 25 mcg p.o. daily. Check TSH Renal: Acute kidney injury Follow-up on CT abdomen/pelvis rule out hydronephrosis Check urine eosinophils, sodium and creatinine Monitor urine output Accurate I's and O's Heme: Pancytopenia including leukopenia, thrombocytopenia and macrocytic anemia Neutropenic precautions Monitor CBC daily./Follow trends. Her buckle stapler is Dr. Camacho. ID: Severe sepsis etiology unclear. Placed on piperacillin/tazobactam, vancomycin and fluconazole Blood cultures x2 pending at the present time. Consult infectious disease for assistance in management antibiotics and antifungals FEN: Replace electrolytes as clinically indicated MSK: PT evaluate and treat Access -Utilize peripheral IV. Central line if indicated Prophylaxis - -GI pantoprazole - -DVT SCD/holding pharmacologic prophylaxis in light of coagulopathic state Critical care time 35 minutes. Code Status: Full code Discussed Condition With: ED physician. We did talk to family. Care plan discussed and all questions answered. Procedures: Right IJ CVL, left femoral arterial line Brief History: This is a 68-year-old female. Date of admission 07/08/2018 with past medical history includes hepatocellular carcinoma receiving localized treatment to the liver, chronic active gastritis with history of gastric ulcers 2016, anemia on macrocytic chronic, history of EtOH, hypertension and hypothyroidism. Patient presents to [facility] acutely per ED physician is no family is currently available with planes of abdominal pain and lethargy. She was tachypneic with a respiratory rate in the 50s. She required emergent intubation in the ED. Afterwards, patient had borderline blood pressures and a central line was placed in the right internal jugular vein and patient was started on norepinephrine drip. Workup included acute kidney injury with a creatinine currently 2.31. Baseline is normal. Elevated total bilirubin 6.7. Elevated AST of. Patient had a lactic acidosis of 13. Patient was coagulopathic with elevated INR, PTT and low fibrinogen. Patient white blood cell count of 0.2. Macrocytic anemia 10 and 98 platelets. Chest x-ray revealed no signs of pneumothorax. Worsening pulmonary edema. No free air under the diaphragm. CT of the abdomen/pelvis is currently pending. Patient was started on piperacillin/tazobactam, vancomycin and fluconazole. An arterial line was placed in the left femoral region. Result Diagrams: 07/08/18 11:54 07/08/18 11:54 Significant Findings: Abnormal Lab Results 07/08/18 07/08/18 07/08/18 02:54 11:54 11:54 WBC 0.2 L RBC 2.84 L Hgb 10.2 L Hct 32.0 L MCV 112.8 H MCH 36.1 H MCHC 32.0 RDW 18.1 H Plt Count 98 L MPV 8.1 Prelim Diff (Auto) Manual diff required WBC Differential Manual diff final Seg Neuts % (Manual) 36 Band Neuts % (Manual) 4 Lymphocytes % (Manual) 52 H Monocytes % (Manual) 8 Abs Neuts (Manual) 0.1 L* Nucleated RBCs/100 WBC 200 H Differential Comment . Platelet Estimate Low L Platelet Morphology Normal Polychromasia 2.1 H Pappenheimer Bodies Present H PT 15.9 H INR 1.6 APTT 51.9 H Fibrinogen Puncture Site [place] Patient Temperature 98.6 O2 Saturation 97 ABG pH 7.63 H* ABG pCO2 49 H ABG pO2 90 ABG HCO3 53 H ABG O2 Content 10.2 L ABG Base Excess 27.3 H ABG Methemoglobin 0.5 Rosas Test Hemoglobin 7.4 L* Carboxyhemoglobin 1.5 O2 Delivery Device Vent Vent Setting See comments Inspired O2 100 Critical Value Yes Sodium Potassium Chloride Carbon Dioxide Anion Gap BUN Creatinine Estimated GFR POC Glucose Random Glucose Lactic Acid Calcium Phosphorus Magnesium Total Bilirubin AST ALT Alkaline Phosphatase Troponin I Total Protein Albumin Lipase Urine Color Urine Clarity Urine pH Ur Specific [place] Urine Protein Urine Glucose (UA) Urine Ketones Urine Occult Blood Urine Nitrate Urine Bilirubin Urine Ictotest Urine Urobilinogen Ur Leukocyte Esterase Urine RBC Urine WBC Ur Squamous Epith Cells Amorphous Sediment Urine Bacteria Urine Mucus Micro UA Comment Ur Microscopic Review Urine Culture Comments Ur Random Creatinine Ur Random Sodium 07/08/18 07/08/18 07/08/18 11:54 11:54 11:57 WBC RBC Hgb Hct MCV MCH MCHC RDW Plt Count MPV Prelim Diff (Auto) WBC Differential Seg Neuts % (Manual) Band Neuts % (Manual) Lymphocytes % (Manual) Monocytes % (Manual) Abs Neuts (Manual) Nucleated RBCs/100 WBC Differential Comment Platelet Estimate Platelet Morphology Polychromasia Pappenheimer Bodies PT INR APTT Fibrinogen 211 L Puncture Site Patient Temperature O2 Saturation ABG pH ABG pCO2 ABG pO2 ABG HCO3 ABG O2 Content ABG Base Excess ABG Methemoglobin Rosas Test Hemoglobin Carboxyhemoglobin O2 Delivery Device Vent Setting Inspired O2 Critical Value Sodium 137 Potassium 3.8 Chloride 99 Carbon Dioxide 17.9 L Anion Gap 20 H BUN 15 Creatinine 2.31 H Estimated GFR 25 L POC Glucose Random Glucose 107 H Lactic Acid 13.0 H* Calcium 7.5 L Phosphorus Magnesium 1.7 Total Bilirubin 6.7 H AST 273 H ALT 49 Alkaline Phosphatase 226 H Troponin I 0.08 H Total Protein 5.7 L Albumin 1.7 L Lipase 103 Urine Color Urine Clarity Urine pH Ur Specific [place] Urine Protein Urine Glucose (UA) Urine Ketones Urine Occult Blood Urine Nitrate Urine Bilirubin Urine Ictotest Urine Urobilinogen Ur Leukocyte Esterase Urine RBC Urine WBC Ur Squamous Epith Cells Amorphous Sediment Urine Bacteria Urine Mucus Micro UA Comment Ur Microscopic Review Urine Culture Comments Ur Random Creatinine Ur Random Sodium 07/08/18 07/08/18 07/08/18 13:08 15:49 15:51 WBC RBC Hgb Hct MCV MCH MCHC RDW Plt Count MPV Prelim Diff (Auto) WBC Differential Seg Neuts % (Manual) Band Neuts % (Manual) Lymphocytes % (Manual) Monocytes % (Manual) Abs Neuts (Manual) Nucleated RBCs/100 WBC Differential Comment Platelet Estimate Platelet Morphology Polychromasia Pappenheimer Bodies PT INR APTT Fibrinogen Puncture Site Art line Patient Temperature 98.6 O2 Saturation 89 L* ABG pH 7.54 H* ABG pCO2 63 H* ABG pO2 57 L* ABG HCO3 54 H ABG O2 Content 9.3 L ABG Base Excess 28.1 H ABG Methemoglobin 1.2 Rosas Test Y Hemoglobin 7.4 L* Carboxyhemoglobin 1.3 O2 Delivery Device Ventilator Vent Setting Prvc/ac Inspired O2 100 Critical Value Yes Sodium Potassium Chloride Carbon Dioxide Anion Gap BUN Creatinine Estimated GFR POC Glucose 24 L* Random Glucose Lactic Acid Calcium Phosphorus Magnesium Total Bilirubin AST ALT Alkaline Phosphatase Troponin I Total Protein Albumin Lipase Urine Color [place] Urine Clarity Hazy H Urine pH 5.0 Ur Specific [place] 1.024 Urine Protein 100 H Urine Glucose (UA) Negative Urine Ketones Negative Urine Occult Blood Negative Urine Nitrate Negative Urine Bilirubin Small H Urine Ictotest Positive H Urine Urobilinogen 4 or greater Ur Leukocyte Esterase Negative Urine RBC 2 Urine WBC 2 Ur Squamous Epith Cells 3 Amorphous Sediment Many H Urine Bacteria Occasional H Urine Mucus Few H Micro UA Comment Culture not ind Ur Microscopic Review Not Reportable Urine Culture Comments Culture not ind Ur Random Creatinine Ur Random Sodium 07/08/18 07/08/18 07/08/18 15:52 16:25 16:25 WBC RBC Hgb Hct MCV MCH MCHC RDW Plt Count MPV Prelim Diff (Auto) WBC Differential Seg Neuts % (Manual) Band Neuts % (Manual) Lymphocytes % (Manual) Monocytes % (Manual) Abs Neuts (Manual) Nucleated RBCs/100 WBC Differential Comment Platelet Estimate Platelet Morphology Polychromasia Pappenheimer Bodies PT INR APTT Fibrinogen Puncture Site Patient Temperature O2 Saturation ABG pH ABG pCO2 ABG pO2 ABG HCO3 ABG O2 Content ABG Base Excess ABG Methemoglobin Rosas Test Hemoglobin Carboxyhemoglobin O2 Delivery Device Vent Setting Inspired O2 Critical Value Sodium Potassium Chloride Carbon Dioxide Anion Gap BUN Creatinine Estimated GFR POC Glucose 168 H Random Glucose Lactic Acid Calcium Phosphorus 8.4 H Magnesium Total Bilirubin AST ALT Alkaline Phosphatase Troponin I 0.13 H Total Protein Albumin Lipase Urine Color Urine Clarity Urine pH Ur Specific [place] Urine Protein Urine Glucose (UA) Urine Ketones Urine Occult Blood Urine Nitrate Urine Bilirubin Urine Ictotest Urine Urobilinogen Ur Leukocyte Esterase Urine RBC Urine WBC Ur Squamous Epith Cells Amorphous Sediment Urine Bacteria Urine Mucus Micro UA Comment Ur Microscopic Review Urine Culture Comments Ur Random Creatinine Ur Random Sodium 07/08/18 07/08/18 16:25 16:25 WBC RBC Hgb Hct MCV MCH MCHC RDW Plt Count MPV Prelim Diff (Auto) WBC Differential Seg Neuts % (Manual) Band Neuts % (Manual) Lymphocytes % (Manual) Monocytes % (Manual) Abs Neuts (Manual) Nucleated RBCs/100 WBC Differential Comment Platelet Estimate Platelet Morphology Polychromasia Pappenheimer Bodies PT INR APTT Fibrinogen Puncture Site Patient Temperature O2 Saturation ABG pH ABG pCO2 ABG pO2 ABG HCO3 ABG O2 Content ABG Base Excess ABG Methemoglobin Rosas Test Hemoglobin Carboxyhemoglobin O2 Delivery Device Vent Setting Inspired O2 Critical Value Sodium Potassium Chloride Carbon Dioxide Anion Gap BUN Creatinine Estimated GFR POC Glucose Random Glucose Lactic Acid Calcium Phosphorus Magnesium Total Bilirubin AST ALT Alkaline Phosphatase Troponin I Total Protein Albumin Lipase Urine Color Urine Clarity Urine pH Ur Specific [place] Urine Protein Urine Glucose (UA) Urine Ketones Urine Occult Blood Urine Nitrate Urine Bilirubin Urine Ictotest Urine Urobilinogen Ur Leukocyte Esterase Urine RBC Urine WBC Ur Squamous Epith Cells Amorphous Sediment Urine Bacteria Urine Mucus Micro UA Comment Ur Microscopic Review Urine Culture Comments Ur Random Creatinine Cancelled Ur Random Sodium 5 Imaging: Abdomen/Pelvis CT 07/08/18 11:31 CONCLUSION: 1. Liver replaced by low-density masses. 2. Ascites. Possible peritoneal carcinomatosis 3. Dense consolidative changes in the lung bases Chest X-Ray 07/08/18 11:31 CONCLUSION: Endotracheal tube and nasogastric tube in place. Chest X-Ray 07/08/18 14:07 CONCLUSION: 1. No pneumothorax status post placement of right internal jugular central line which has its tip at the junction of superior vena cava right atrium. 2. Worsening bilateral pulmonary infiltrates are noted suggestive of worsening pulmonary edema or pneumonia. Clinical correlation is recommended. Hospital Course: Neuro'Psych: History of EtOH Propofol/fentanyl drips for sedation/analgesia while intubated Goal of RA SS -2 Daily sedation vacation Holding temazepam 30 mg at night CV: Severe sepsis Lactic acidosis History of essential hypertension History of hyperlipidemia Elevated troponin Serial lactates until cleared Received 2.5 L crystalloid in ED. Currently norepinephrine, vasopressin to maintain mean arterial pressure greater than equal 65 Holding amlodipine 10 mg daily, hydrochlorothiazide 25 mg in light of hypotension Holding atorvastatin 40 mg daily in light of acute liver injury Follow-up on EKG. Serial troponins until downward trend Resp: Acute respiratory failure secondary to severe sepsis PRVC ventilation Ventilator bundle Albuterol/ipratropium aerosols every 4 hours with albuterol aerosols every 2 as needed dyspnea Spontaneous breathing trials when clinically indicated Follow-up on post intubation chest x-ray and ABG GI: Elevated AST total bilirubin elevated History of hepatocellular carcinoma [facility] CT abdomen/pelvis pending NG tube to low intermittent wall suction Received 80 mg IV pantoprazole in ED. Currently 40 mg IV twice daily Docusate serum/senna 1 tablet bid for bowel regimen : Catheter has been placed for accurate I's and O's in a critically ill patient Endo: Hypothyroidism Sliding scale insulin Accu-Cheks to maintain euglycemia Previously on Levoxyl 25 mcg p.o. daily. Check TSH Renal: Acute kidney injury Follow-up on CT abdomen/pelvis rule out hydronephrosis Check urine eosinophils, sodium and creatinine Monitor urine output Accurate I's and O's Heme: Pancytopenia including leukopenia, thrombocytopenia and macrocytic anemia Neutropenic precautions Monitor CBC daily./Follow trends. Her buckle stapler is Dr. Camacho. ID: Severe sepsis etiology unclear. Placed on piperacillin/tazobactam, vancomycin and fluconazole Blood cultures x2 pending at the present time. Consult infectious disease for assistance in management antibiotics and antifungals FEN: Replace electrolytes as clinically indicated MSK: PT evaluate and treat Access -Utilize peripheral IV. Central line if indicated Prophylaxis - -GI pantoprazole - -DVT SCD/holding pharmacologic prophylaxis in light of coagulopathic state Critical care time 35 minutes. Code Status: Full code Discussed Condition With: ED physician. We did talk to family. Care plan discussed and all questions answered. - Additional Data Confirmation of as documented by pronouncing clinician: no pulse
--- NOTE | 2018-07-08 18:31 | P.PCN ---
Date of procedure: 07/08/08 Pre-op diagnosis: Acute respiratory failure Post-op diagnosis: same Procedure: DATE: 07/08/2018 PROCEDURE: Left femoral arterial catheter placement INDICATION: Severe sepsis DETAILS OF PROCEDURE The patient was placed in supine position. The skin was cleansed with Chloraprep. Additional barrier precautions included large sterile drape, sterile gloves, sterile gown, face mask, and hat. 1% lidocaine was used for local anesthesia. Under direct ultrasound guidance and on the initial attempt, the artery was accessed with an introducer needle. The guide wire was advanced. Using Seldinger technique 20 gauge arterial catheter was placed. The guide wire was removed. The catheter was connected to a transducer line and flushed with saline. The video monitor displayed normal arterial wave forms. The catheter was secured with 2-0 silk. A sterile dressing with antibiotic disc was applied. ESTIMATED BLOOD LOSS: minimal COMPLICATIONS: None
[2018-07-08 19:35] LABS: Creatinine,Urine Random 373 mg/dL (27-300)
[2018-07-08] MEDS ORDERED: Chlorhexidine 0.12% Oral Kit 15 ML UDC OROPHARYNG SCH (20:00)
[2018-07-08] MEDS ORDERED: Senna/Docusate Sodium 8.6/50 MG Tablet PO SCH (21:00)
[2018-07-09] MEDS ORDERED: Chlorhexidine Gluconate 2% 1 Pack (2 Cloths) TOPICAL PRN (04:00)
[2018-07-09] MEDS ORDERED: Chlorhexidine Gluconate 2% 1 Pack (2 Cloths) TOPICAL SCH (04:00)
[2018-07-09] MEDS ORDERED: Pantoprazole Inj 40 MG Vial IV.PUSH SCH (09:00)
--- NOTE | 2018-07-09 15:40 | ECG ---
Date Performed: 07/08/2018 Time Performed: 11:24:13 PTAGE: 68 years EKG: SINUS TACHYCARDIA WITH SHORT NE INTERVAL LEFT BUNDLE BRANCH BLOCK ABNORMAL ECG INTERPRETATI ON BASED ON A DEFAULT AGE OF 40 YEARS PREVIOUS TRACING : 09/07/2017 02.33 Compared to previous tracing, the sinus tachycardia i s new. There has been an increase in the lateral ST depression and T-wave changes, bbutit is Nonspeci fic in the setting of the Left bundle branch block Clinical correlation is recommended DOCTOR: Thelma Zarate Interpretating Date/Time 07/09/2018 15:38:04
== END 2018-07-08 16:55 | disposition expired ==
LOC: NEPE 11:10 → NEDA 13:47 → HIMC 15:15
PROVIDERS: ADMIT Internal Medicine Critical Care Medicine; ATTEND Internal Medicine Critical Care Medicine